=== PATIENT | male | born 1960 | race Caucasian/White ===

== ENCOUNTER → 2019-12-31 15:40 | Outpatient (BNVA) | payer OTHER, SELFPAY | PROVIDERS: PCP Family Medicine; Visit Provider Urology | DX: Z76.89 Persons encountering health services in other specified circumstances (principal) ==

== ENCOUNTER → 2020-02-17 14:48 | Outpatient (BNVA) | payer SELFPAY | PROVIDERS: PCP Family Medicine; Visit Provider Physician Assistant Medical ==

== ENCOUNTER 2020-05-24 14:31 | Outpatient (REF) | payer OTHER, SELFPAY ==
[2020-05-24 15:44] LABS: Alanine Aminotransferase 26 U/L (0-40); Albumin Level 4.6 g/dL (3.5-5.0); Alkaline Phosphatase 82 U/L (39-117); Anion Gap 15 (12-20); Aspartate Amino Transferase 16 U/L (5-37); Bilirubin Total 1.2 mg/dL (0.0-1.0); Blood Urea Nitrogen 19 mg/dL (9-16); Calcium 9.3 mg/dL (8.4-10.2); Carbon Dioxide 29 mmol/L (22-29); Chloride 97 mmol/L (96-108); Estimated Glomerular Filt Rate > 60; Glucose Random 93 mg/dL (60-115); Potassium 3.6 mmol/L (3.3-5.1); Sodium 137 mmol/L (135-145); Total Protein 7.3 g/dL (6.5-8.0)
[2020-05-24 15:52] LABS: Prostate Specific Antigen 0.35 ng/mL (<0.05-4.0)
[2020-05-24 15:55] LABS: Creatinine Urine 122.47 mg/dL; Microalbum/Creatinine Ratio Ur 15.5 ug/mg cr
== END 2020-05-24 14:32 | disposition home or self-care (01) ==
LOC: HO.LAB 14:31
PROVIDERS: Absent Provider Urology; PCP Family Medicine; Visit Provider Family Medicine
DX: Z00.00 Encounter for general adult medical examination without abnormal findings (principal); Z12.5 Encounter for screening for malignant neoplasm of prostate; C61 Malignant neoplasm of prostate; C79.51 Secondary malignant neoplasm of bone; N40.1 Benign prostatic hyperplasia with lower urinary tract symptoms; R35.1 Nocturia; I10 Essential (primary) hypertension
CPT/HCPCS: 36415; 80053; 82043; 84153

== ENCOUNTER 2020-06-04 09:58 | Outpatient (REF) | payer OTHER, SELFPAY ==
--- NOTE | ~2020-06-04 | XR_ITS ---
EXAMINATION: XR CHEST CLINICAL INFORMATION: Other specified mononeuropathies COMPARISON: Chest CT October 2019, chest x-ray July 2014 TECHNIQUE: 2 views of the chest were obtained. FINDINGS: Persistent elevation of the right hemidiaphragm. Linear opacity at the right base compatible with atelectasis and/or scarring with a similar appearance noted on prior examinations. Lungs otherwise clear. Cardiac silhouette, mediastinum and pulmonary vascularity are normal. XR/XR chest 2V IMPRESSION: Stable elevated right hemidiaphragm. Linear opacity at the right base compatible with persistent or recurrent discoid atelectasis versus scarring.
== END 2020-06-04 09:59 | disposition home or self-care (01) ==
LOC: HO.XRAY 09:58
PROVIDERS: PCP Family Medicine; Visit Provider Surgery
DX: G56.80 Other specified mononeuropathies of unspecified upper limb (principal)
CPT/HCPCS: 71046; 99212

== ENCOUNTER 2020-11-17 14:38 | Outpatient (REF) | payer OTHER, SELFPAY ==
[2020-11-17 15:31] LABS: Alanine Aminotransferase 20 U/L (0-40); Albumin Level 4.4 g/dL (3.5-5.0); Alkaline Phosphatase 87 U/L (39-117); Anion Gap 14 (12-20); Aspartate Amino Transferase 15 U/L (5-37); Bilirubin Total 1.8 mg/dL (0.0-1.0); Blood Urea Nitrogen 13 mg/dL (9-16); Calcium 9.6 mg/dL (8.4-10.2); Carbon Dioxide 29 mmol/L (22-29); Chloride 97 mmol/L (96-108); Cholesterol 122 mg/dL; Estimated Glomerular Filt Rate > 60; Glucose Fasting 88 mg/dL (60-99); HDL Cholesterol 35 mg/dL; LDL Cholesterol Calculated 77 mg/dl; Potassium 3.2 mmol/L (3.3-5.1); Sodium 137 mmol/L (135-145); Triglycerides 50 mg/dL
[2020-11-17 15:50] LABS: TSH reflex Free T4 0.82 uIU/mL (0.32-4.0)
[2020-11-17 15:57] LABS: Glucose Urine UA NEG (NEG); Leukocyte Esterase Urine NEG (NEG); Nitrite Urine NEG (NEG); Specific Gravity - Urine <= 1.005 (1.005-1.025); Urine Blood TRACE (NEG); Urine Ketones NEG (NEG); Urine Protein NEG (NEG-TRACE)
[2020-11-17 16:03] LABS: Appearance Urine CLEAR; Color Urine YELLOW
[2020-11-17 16:57] LABS: RBC Urine 0 /HPF (0); Squamous Epithelial Cell Urine TRACE /LPF; WBC Urine 0 /HPF (0-4)
== END 2020-11-17 14:39 | disposition home or self-care (01) ==
LOC: HO.LAB 14:38
PROVIDERS: PCP Family Medicine; Visit Provider Family Medicine
DX: Z00.00 Encounter for general adult medical examination without abnormal findings (principal); R31.29 Other microscopic hematuria
CPT/HCPCS: 36415; 80053; 80061; 81001; 81003; 84443

== ENCOUNTER 2020-12-30 14:23 | Outpatient (REF) | payer OTHER, SELFPAY ==
[2020-12-30 16:01] LABS: Prostate Specific Antigen 0.26 ng/mL (<0.05-4.0)
== END 2020-12-30 14:24 | disposition home or self-care (01) ==
LOC: HO.LAB 14:23
PROVIDERS: PCP Family Medicine; Visit Provider Urology
DX: Z12.5 Encounter for screening for malignant neoplasm of prostate (principal); C61 Malignant neoplasm of prostate; C79.51 Secondary malignant neoplasm of bone; N40.1 Benign prostatic hyperplasia with lower urinary tract symptoms; R35.1 Nocturia
CPT/HCPCS: 36415; 84153

== ENCOUNTER → 2021-01-05 15:39 | Outpatient (BNVA) | payer OTHER, SELFPAY | PROVIDERS: Visit Provider Urology | DX: N40.1 Benign prostatic hyperplasia with lower urinary tract symptoms (principal); R35.1 Nocturia | CPT/HCPCS: 51798 ==

== ENCOUNTER 2021-03-04 14:30 | Outpatient (REF) | payer OTHER, SELFPAY ==
[2021-03-04 15:22] LABS: Cholesterol 162 mg/dL; HDL Cholesterol 54 mg/dL; LDL Cholesterol Calculated 99 mg/dl; Triglycerides 47 mg/dL
== END 2021-03-04 14:31 | disposition home or self-care (01) ==
LOC: HO.LAB 14:30
PROVIDERS: PCP Family Medicine; Visit Provider Family Medicine
DX: E78.5 Hyperlipidemia, unspecified (principal)
CPT/HCPCS: 36415; 80061

== ENCOUNTER 2021-06-06 14:16 | Outpatient (REF) | payer OTHER, SELFPAY ==
[2021-06-06 15:17] LABS: Cholesterol 164 mg/dL; HDL Cholesterol 56 mg/dL; LDL Cholesterol Calculated 100 mg/dl; Triglycerides 43 mg/dL
== END 2021-06-06 14:17 | disposition home or self-care (01) ==
LOC: HO.LAB 14:16
PROVIDERS: PCP Family Medicine; Visit Provider Family Medicine
DX: E78.5 Hyperlipidemia, unspecified (principal)
CPT/HCPCS: 36415; 80061

== ENCOUNTER 2022-01-30 14:25 | Outpatient (REF) | payer OTHER, SELFPAY ==
[2022-01-30 15:34] LABS: Prostate Specific Antigen 0.96 ng/mL (<0.05-4.0)
== END 2022-01-30 14:26 | disposition home or self-care (01) ==
LOC: HO.LAB 14:25
PROVIDERS: PCP Family Medicine; Visit Provider Urology
DX: N40.1 Benign prostatic hyperplasia with lower urinary tract symptoms (principal); N13.8 Other obstructive and reflux uropathy; R35.1 Nocturia; Z12.5 Encounter for screening for malignant neoplasm of prostate
CPT/HCPCS: 36415; 84153

== ENCOUNTER 2022-03-13 09:23 | Outpatient (REF) | payer OTHER, SELFPAY ==
[2022-03-13 10:56] LABS: Appearance Urine Clear; Color Urine Yellow; Glucose Urine UA Negative (Negative); Leukocyte Esterase Urine Negative (Negative); Nitrite Urine Negative (Negative); Specific Gravity - Urine 1.015 (1.005-1.025); UMIC TRIGGER UA YES; Urine Blood Trace (Negative); Urine Ketones Negative (Negative); Urine Protein Negative (Neg-Trace)
[2022-03-13 11:01] LABS: Bacteria Urine None Seen (None Seen); Hyaline Casts Urine 0-2 /LPF (0-2); RBC Urine 0-2 /HPF (0-2); Squamous Epithelial Cell Urine 0-2 /HPF (0-2); WBC Urine 0-5 /HPF (0-5)
[2022-03-13 11:09] LABS: Alanine Aminotransferase 17 U/L (0-40); Albumin Level 4.2 g/dL (3.5-5.0); Alkaline Phosphatase 75 U/L (39-117); Anion Gap 13 (12-20); Aspartate Amino Transferase 15 U/L (5-37); Bilirubin Total 1.1 mg/dL (0.0-1.0); Blood Urea Nitrogen 20 mg/dL (9-16); Calcium 9.3 mg/dL (8.4-10.2); Carbon Dioxide 30 mmol/L (22-29); Chloride 99 mmol/L (96-108); Cholesterol 198 mg/dL; Estimated Glomerular Filt Rate > 60; Glucose Fasting 101 mg/dL (60-99); HDL Cholesterol 61 mg/dL; LDL Cholesterol Calculated 121 mg/dl; Potassium 3.9 mmol/L (3.3-5.1); Sodium 138 mmol/L (135-145); Total Protein 6.8 g/dL (6.5-8.0); Triglycerides 83 mg/dL
[2022-03-13 11:21] LABS: TSH reflex Free T4 1.07 uIU/mL (0.32-4.0)
[2022-03-13 11:24] LABS: Creatinine Urine 75.74 mg/dL; Microalbum/Creatinine Ratio Ur 10.5 ug/mg cr
== END 2022-03-13 09:24 | disposition home or self-care (01) ==
LOC: HO.LAB 09:23
PROVIDERS: Urology; PCP Family Medicine; Visit Provider Family Medicine
DX: Z00.00 Encounter for general adult medical examination without abnormal findings (principal); Z12.5 Encounter for screening for malignant neoplasm of prostate; R31.29 Other microscopic hematuria; I10 Essential (primary) hypertension
CPT/HCPCS: 36415; 80053; 80061; 81001; 82043; 84153; 84443

== ENCOUNTER 2022-06-04 09:35 | Emergency (ER) | payer OTHER, SELFPAY ==
[2022-06-04 09:43] VITALS: BP 151/89; PULSE 83; RESP 22; TEMP 37.1; O2SAT 93; BMI 42.3
[2022-06-04 09:52] VITALS: BP 139/80; PULSE 86; RESP 18; TEMP 36.8; O2SAT 93
--- NOTE | 2022-06-04 10:00 | PC.NURSE ---
pt AOx3, VSS. reports intermittent pain on left side and back mostly when pressing on rib area. Pt first thought is was muscular related. Red raised rash on left side and abd. Will continue to monitor
--- NOTE | 2022-06-04 10:08 | ED_ITS ---
HPI - General Adult General Chief complaint: General Medical Stated complaint: L flank pain rad to back Time Seen by Provider: 06/04/22 09:49 Source: patient Mode of arrival: ambulatory History of Present Illness HPI narrative: 62-year-old male who presents with tingling and pain along the left chest wall this started on / Sunday and then has progressively become more painful and he noted that yesterday he began having a rash . Related Data Home Medications Medication Instructions Recorded Confirmed doxycycline hyclate 20 mg tablet 20 mg PO BID 04/20/22 Previous Rx's Medication Instructions Recorded montelukast 10 mg tablet 10 mg PO DAILY 90 days #90 tabs 05/10/21 beclomethasone dipropionate 40 1 inh PO BID 3 months #3 ea 09/22/21 mcg/actuation HFA breath activated aerosol (Qvar RediHaler) albuterol sulfate 90 mcg/actuation 2 puff PO Q4H PRN shortness of 10/23/21 aerosol inhaler breath or wheezing 90 days #3 ea lisinopril 20 mg tablet 20 mg PO DAILY 90 days #90 tabs 03/16/22 chlorthalidone 50 mg tablet 50 mg PO QAM #90 tabs 05/23/22 valacyclovir 1 gram tablet 1,000 mg PO Q8H 7 days #21 tabs 06/04/22 Allergies Allergy/AdvReac Type Severity Reaction Status Date / Time Seasonal Allergies Allergy sneezing, Verified 06/04/22 09:47 runny nose Review of Systems Review of Systems: Pertinent positives and negatives as stated in HPI [facility] Past Medical History Source: nursing notes reviewed Medical History Hypertension Surgical History History of cholecystectomy History of wisdom tooth extraction Family History Family History Father No problems noted. Mother Cancer Brother Cancer of prostate Social History Social History Housing: House Alcohol intake: current Alcohol intake frequency: holidays/special occasions only Patient Tobacco Use Status: Never used Tobacco Smoked in Last 30 Days: No e-Cigarette/Vaping Use: Never Used Second Hand Smoke Exposure: No Use of substances other than those prescribed or required for medical reasons: No Advance Directives: No Advance Directives Information Provided: No service: No Current occupational status: employed Current occupational exposures/hazards: No Cognitive needs: No Hearing needs: No Vision needs: No Physical Exam ED Vital Signs: Vital Signs - 24 hr 06/04/22 09:43 06/04/22 09:52 Temperature 98.7 F 98.2 F Pulse Rate 83 86 Respiratory Rate 22 H 18 Blood Pressure 151/89 H 139/80 Pulse Oximetry 93 93 Oxygen Delivery Method Room Air Room Air BMI result Body Mass Index 42.3 VITAL SIGNS: Reviewed. GENERAL: Well developed, well nourished, in no acute distress. HEAD: Normocephalic/atraumatic EYES: PERRLA, EOMI OROPHARYNX: no oral lesions noted, posterior pharynx clear NECK: Supple, no adenopathy LUNGS: Normal breath sounds. No adventitious sounds or accessory muscle use. SpO2<93>; CHEST WALL: Patient has pain along the approximate T5 distribution with noted patches of vesicular rash. CARDIOVASCULAR: Regular rate and rhythm without noted murmurs ABDOMEN: Soft, non-tender, non-distended with bowel sounds. SKIN: Inspection of the skin reveals no rashes, vesicular rash along the approximate T5 dermatome level NEUROLOGIC: Alert and oriented x 4. Strength and sensation to light touch were grossly intact x 4. Medical Decision Making Medical Decision Making MDM Narrative: 62-year-old male with onset and course consistent with herpes zoster, shingles and received initial valacyclovir here in the emergency room and discharged on remaining course. Patient also received a lidocaine patch and Tylenol for headache. He is otherwise discharged home in stable condition Differential Diagnosis please see the discussion above Discharge Plan Discharge Clinical Impression: Herpes zoster Patient Disposition: Home, Self-Care Instructions: Shingles (ED) Additional Instructions: 1. Resume all home medications as prescribed. You can use [id number] lidocaine patch to areas that do not contain the rash. Otherwise, topical Benadryl cream will help with some itch, please avoid scratching as this could result in contamination underneath your fingernails and could potentially be transferred to someone else. 2. Please complete the entire course of shingles treatment. 3. Please follow-up with your primary care provider next 2-3 days. Return to the ER for any worsening symptoms. Prescriptions: New valacyclovir 1 gram tablet 1,000 mg PO Q8H 7 Days Qty: 21 0RF No Action montelukast 10 mg tablet 10 mg PO DAILY 90 Days Qty: 90 4RF Qvar RediHaler 40 mcg/actuation HFA aerosol breath activated 1 inh PO BID 90 Days Qty: 3 3RF albuterol sulfate 90 mcg/actuation HFA aerosol inhaler 2 puff PO Q4H PRN (Reason: shortness of breath or wheezing) 90 Days Qty: 3 3RF Rx Instructions: please provide # 3 inhaler for insurance purpose reasons. chlorthalidone 50 mg tablet 50 mg PO QAM Qty: 90 2RF lisinopril 20 mg tablet 20 mg PO DAILY 90 Days Qty: 90 2RF doxycycline hyclate 20 mg tablet 20 mg PO BID Referrals: Donnie Butterfield MD [Primary Care Provider] -
[2022-06-04] MEDS: Acetaminophen 325 MG TABLET 975 MG PO (10:21)
[2022-06-04] MEDS: valACYclovir HCL 1,000 MG TABLET 1000 MG PO (10:22)
[2022-06-04] MEDS: Lidocaine 4 % Patch ADH..PATCH 1 PATCH TRANSDERMA (10:23)
--- NOTE | 2022-06-04 10:25 | PC.NURSE ---
pt medicated per order. lidocaine patch placed left flank back area, avoiding any rash
== END 2022-06-04 10:38 | disposition home or self-care (01) ==
PROVIDERS: Emergency Provider Student in an Organized Health Care Education/Training Program; PCP Family Medicine
DX: B02.9 Zoster without complications (principal); R07.89 Other chest pain; M54.50 Low back pain, unspecified; Z79.899 Other long term (current) drug therapy
CPT/HCPCS: 99283; 99284

== ENCOUNTER 2022-07-11 15:43 | Outpatient (REF) | payer OTHER, SELFPAY ==
[2022-07-11 18:34] LABS: Anion Gap 20 (12-20); Blood Urea Nitrogen 17 mg/dL (9-16); Calcium 9.3 mg/dL (8.4-10.2); Carbon Dioxide 26 mmol/L (22-29); Chloride 93 mmol/L (96-108); Estimated Glomerular Filt Rate > 60; Glucose Fasting 69 mg/dL (60-99); Potassium 3.6 mmol/L (3.3-5.1); Sodium 135 mmol/L (135-145)
== END 2022-07-11 15:44 | disposition home or self-care (01) ==
LOC: HO.LAB 15:43
PROVIDERS: PCP Family Medicine; Visit Provider Family Medicine
DX: I10 Essential (primary) hypertension (principal)
CPT/HCPCS: 36415; 80048

== ENCOUNTER 2022-09-30 09:42 | Emergency (ER) | payer OTHER, SELFPAY ==
[2022-09-30 09:48] VITALS: BP 141/78; PULSE 96; RESP 18; TEMP 36.3; O2SAT 95; BMI 46.5
--- NOTE | 2022-09-30 10:10 | ED_ITS ---
HPI - General Adult General Chief complaint: Dyspnea Stated complaint: diff breathing chest congestion Time Seen by Provider: 09/30/22 09:56 Source: patient, family and RN notes reviewed Mode of arrival: ambulatory Limitations: no limitations History of Present Illness HPI narrative: This is a 62-year-old male, with a past medical history of hypertension, presenting to the emergency department, accompanied by his , for evaluation of productive cough with green sputum, congestion, and shortness of breath x 5 days. Patient reports that his symptoms started off with a sore throat and runny nose several days ago. Patient reports that he has developed a cough and now is coughing up green colored sputum. He reports pain in his chest which occurs with deep inspiration. Patient reports that the shortness of breath worsens with lying down. Denies any swelling in his lower extremities. No fevers, chills, sore throat, ear pain. Denies any other complaints or concerns at this time. MD complaint: Cough, SOB Onset (ago): day(s) Radiation: non-radiation Pain Consistency: intermittent Relieving factors: none Exacerbating factors: none Associated symptoms: cough Treatments prior to arrival: none Related Data Home Medications Medication Instructions Recorded Confirmed doxycycline hyclate 20 mg tablet 20 mg PO BID 04/20/22 07/14/22 Previous Rx's Medication Instructions Recorded beclomethasone dipropionate 40 1 inh PO BID 3 months #3 ea 09/22/21 mcg/actuation HFA breath activated aerosol (Qvar RediHaler) lisinopril 20 mg tablet 20 mg PO DAILY 90 days #90 tabs 03/16/22 chlorthalidone 50 mg tablet 50 mg PO QAM #90 tabs 05/23/22 albuterol sulfate 90 mcg/actuation 2 puff PO Q4H PRN shortness of 07/27/22 aerosol inhaler breath or wheezing 90 days #3 ea montelukast 10 mg tablet 10 mg PO DAILY 90 days #90 tabs 07/27/22 albuterol sulfate 2.5 mg/0.5 mL 2.5 mg (0.5 mL) inhalation Q20M 09/30/22 solution for nebulization #30 ea albuterol sulfate 90 mcg/actuation 2 puff inhalation Q6H PRN 09/30/22 aerosol inhaler shortness of breath or wheezing #6.7 grams azithromycin 250 mg tablet See Rx Instructions PO .COMPLEX #6 09/30/22 tabs nebulizers (Aeroneb Go Nebulizer) #1 ea 09/30/22 prednisone 50 mg tablet 50 mg PO DAILY 5 days #5 tabs 09/30/22 sodium chloride 0.9 % for 1 ml inhalation Q15M PRN shortness 10/02/22 nebulization of breath or wheezing #90 mL Allergies Allergy/AdvReac Type Severity Reaction Status Date / Time Seasonal Allergies Allergy sneezing, Verified 07/14/22 14:38 runny nose Review of Systems Review of Systems: Yes all other systems are reviewed and are negative Constitutional: Constitutional: Reports as per HPI [facility] Past Medical History Medical History Hypertension Surgical History History of cholecystectomy History of wisdom tooth extraction Family History Family History Father No problems noted. Mother Cancer Brother Cancer of prostate Social History Social History Housing: House Alcohol intake: current Alcohol intake frequency: a few times a week Patient Tobacco Use Status: Never used Tobacco Smoked in Last 30 Days: Yes e-Cigarette/Vaping Use: Never Used Second Hand Smoke Exposure: No Use of substances other than those prescribed or required for medical reasons: No Advance Directives: No Advance Directives Information Provided: No service: No Current occupational status: employed Current occupational exposures/hazards: No Cognitive needs: No Hearing needs: No Vision needs: No Physical Exam ED Vital Signs: Vital Signs - 24 hr 09/30/22 09:48 09/30/22 10:47 09/30/22 11:10 Temperature 97.3 F 98.4 F Pulse Rate 96 91 90 Respiratory Rate 18 16 24 H Blood Pressure 141/78 H 113/61 Pulse Oximetry 95 94 Oxygen Delivery Method Room Air Room Air 09/30/22 11:23 Temperature Pulse Rate 97 Respiratory Rate 21 H Blood Pressure 110/68 Pulse Oximetry 94 Oxygen Delivery Method Room Air BMI result Body Mass Index 46.5 Const General: cooperative, comfortable and no acute distress Orientation/consciousness: patient oriented x3 Limitations: no limitations HENMT Head: Yes normal to inspection, Yes normocephalic and Yes atraumatic Ears: hearing grossly normal bilaterally General nose exam: Normal external nose present Face and sinus: Yes normal facial exam Mouth: Normal oral and palatal mucosa present, oropharynx normal and moist mucous membranes Throat: Yes posterior oropharynx normal Eyes General: appearance normal, both eyes and all related structures Eyelids: Yes eyelids normal Conjunctivae: conjunctivae normal Sclerae: sclerae normal Pupils: Equal, round and reactive pupils present EOM: EOMs intact bilaterally Neck Neck: Yes normal visual inspection, Yes full ROM and Yes no lymphadenopathy Lymphatic: no lymphadenopathy noted Chest Chest palpation & inspection: normal inspection of the chest Resp Other: Diminished lung sounds in BL lung bases, right lower lung base with crackles with faint expiratory wheeze. Effort & Inspection: normal respiratory effort and able to speak in complete sentences Cardio Rate: regular rate Rhythm: regular rhythm Heart sounds: S1 normal heart sound present and S2 normal heart sound present GI Inspection: Yes normal to inspection Skin General skin exam: no rashes or lesions noted Trauma: no lacerations or abrasions Wounds: no wounds Neuro General: patient oriented x3 and moves all extremities Cranial nerves: Yes Equal, round and reactive pupils present Extrem Other: no pedal edema noted. no calf tenderness General: Yes normal to inspection Right upper extremity: normal to inspection Left upper extremity: normal to inspection Right lower extremity: normal to inspection Left lower extremity: normal to inspection Course Reevaluation(s) Reevaluation #1: Patient's symptoms improved with albuterol updraft x-ray without any evidence of consolidation however given clinical suspicions for PNE, will treat with azithromycin, prednisone, and albuterol. Work up reasurring not CHF exacerbation, troponin x1 negative, symptoms have been ongoing for 4+ days, no CP. Walking O2 saturation 95%. Advised to return with any new or worsening symptoms. Patient understands and agrees with plan. Medications Administered Discontinued Medications Generic Name Dose Route Start Last Admin Trade Name Freq PRN Reason Stop Dose Admin Albuterol Sulfate 5 mg 09/30/22 10:08 09/30/22 10:47 Albuterol Sulfate (0.083%) 2.5 Mg/3 Ml Vial.Neb INHALE 09/30/22 10:09 5 mg ONCE ONE Administration Medical Decision Making Medical Decision Making [facility] Narrative: 62-year-old male, with a past medical history of hypertension, presenting to the emergency department for evaluation of productive cough with green sputum, congestion, and shortness of breath. On arrival, pt mildly hypertensive at 141/78, all other VS WNL. Lungs with diminished sounds in BL bases, with crackles auscultated in the right low base. Given presentation, symptoms consistent with pneumonia vs. URI. Will obtain labs to r/o CHF given hx of HTN and SOB worsening with lying down. No pedal edema noted on exam. Plan: labs, ekg, cxr, albuterol updraft Differential Diagnosis Differential Diagnoses: The differential diagnosis associated with the presen tation includes pneumonia, URI, bronchitis, CHF, ACS - unlikely Admission/Observation Consideration of admission/observation: Escalation of care including admission/observation considered Patient would have been admitted to the hospital had his work up had any findings where hospital admission was appropriate and his clinical presentation warranted hospital admission. Lab Data MDM Lab Attestation statement: I reviewed the patient's lab results. BNP 20, troponin negative, mild leukocytosis at 11.1k. All other labs wnl. 09/30/22 10:34 09/30/22 10:34 Labs: Lab Results 09/30/22 09/30/22 09/30/22 Range/Units 10:34 10:34 10:34 WBC 11.1 H (4.8-10.8) X10*3/uL RBC 4.84 (4.60-5.80) X10*6/uL Hgb 14.7 (14.0-18.0) g/dl Hct 45.0 (42.0-52.0) % MCV 93.0 (80.0-98.0) fL MCH 30.4 (27.0-33.0) pg MCHC 32.7 (31.0-36.0) g/dl RDW 12.1 (11.0-16.0) % Plt Count 223 (160-400) X10*3/uL MPV 10.1 (9.4-12.4) fL Immature Gran % (Auto) 0.3 (0.0-0.4) % Neut % (Auto) 81.8 H (45-73) % Lymph % (Auto) 10.0 L (20-40) % [place] % (Auto) 5.3 (2-11) % Eos % (Auto) 2.2 (0-4) % Baso % (Auto) 0.4 (0-2) % Lymph # (Auto) 1.1 L (1.2-4.9) X10*3/uL [place] # (Auto) 0.6 (0.1-1.2) X10*3/uL Eos # (Auto) 0.2 (0.0-0.4) X10*3/uL Baso # (Auto) 0.0 (0.0-0.2) X10*3/uL Abs Immat Gran (auto) 0.03 (0.00-0.03) X10*3/uL Absolute Neuts (auto) 9.1 H (2.0-8.3) x10*3/uL Absolute Nucleated RBC 0.000 (0.0-0.012) X10*3/uL Nucleated RBC % (auto) 0.0 (0.0-0.2) /100WBC Sodium 142 (135-145) mmol/L Potassium 4.3 (3.3-5.1) mmol/L Chloride 103 (96-108) mmol/L Carbon Dioxide 27 (22-29) mmol/L Anion Gap 16 (12-20) BUN 22 H (9-16) mg/dL Creatinine 0.90 (0.5-1.4) mg/dL Estim Creat Clear Calc 140.2 Estimated GFR > 60 Random Glucose 113 (60-115) mg/dL Calcium 10.1 D (8.4-10.2) mg/dL Total Bilirubin 1.4 H (0.0-1.0) mg/dL Direct Bilirubin 0.4 (0.0-0.5) mg/dL AST 16 (5-37) U/L ALT 19 (0-40) U/L Alkaline Phosphatase 77 (39-117) U/L Troponin I High Sens < 2.7 (<3.5-35.0) ng/L B-Natriuretic Peptide (<100) pg/mL Total Protein 7.4 (6.5-8.0) g/dL Albumin 4.2 (3.5-5.0) g/dL COVID-19 (HUAN) (Negative) COVID-19 Clin Com 09/30/22 09/30/22 Range/Units 10:34 10:34 WBC (4.8-10.8) X10*3/uL RBC (4.60-5.80) X10*6/uL Hgb (14.0-18.0) g/dl Hct (42.0-52.0) % MCV (80.0-98.0) fL MCH (27.0-33.0) pg MCHC (31.0-36.0) g/dl RDW (11.0-16.0) % Plt Count (160-400) X10*3/uL MPV (9.4-12.4) fL Immature Gran % (Auto) (0.0-0.4) % Neut % (Auto) (45-73) % Lymph % (Auto) (20-40) % Marathon % (Auto) (2-11) % Eos % (Auto) (0-4) % Baso % (Auto) (0-2) % Lymph # (Auto) (1.2-4.9) X10*3/uL Marathon # (Auto) (0.1-1.2) X10*3/uL Eos # (Auto) (0.0-0.4) X10*3/uL Baso # (Auto) (0.0-0.2) X10*3/uL Abs Immat Gran (auto) (0.00-0.03) X10*3/uL Absolute Neuts (auto) (2.0-8.3) x10*3/uL Absolute Nucleated RBC (0.0-0.012) X10*3/uL Nucleated RBC % (auto) (0.0-0.2) /100WBC Sodium (135-145) mmol/L Potassium (3.3-5.1) mmol/L Chloride (96-108) mmol/L Carbon Dioxide (22-29) mmol/L Anion Gap (12-20) BUN (9-16) mg/dL Creatinine (0.5-1.4) mg/dL Estim Creat Clear Calc Estimated GFR Random Glucose (60-115) mg/dL Calcium (8.4-10.2) mg/dL Total Bilirubin (0.0-1.0) mg/dL Direct Bilirubin (0.0-0.5) mg/dL AST (5-37) U/L ALT (0-40) U/L Alkaline Phosphatase (39-117) U/L Troponin I High Sens (<3.5-35.0) ng/L B-Natriuretic Peptide 20 (<100) pg/mL Total Protein (6.5-8.0) g/dL Albumin (3.5-5.0) g/dL COVID-19 (HUAN) Negative (Negative) COVID-19 Clin Com See Note Independent Interpretation I performed an independent interpretation of an: EKG Interpretation: Normal sinus rhythm at a ventricular rate of 81BPM, OH interval 164, QTC 406. Radiology Impression Discussion of test interpretation with radiology: I have reviewed the radiologist's reading. Radiologist Impression: EXAMINATION: XR CHEST CLINICAL INFORMATION: Cough and chest pain COMPARISON: Chest: 06/04/2020 TECHNIQUE: 2 views of the chest were obtained. FINDINGS: There is elevated right hemidiaphragm with right lower lobe atelectasis. The right upper lung and the left lung is expanded and clear. The heart size enlarged. Pulmonary vascularity is normal. XR/XR chest 2V IMPRESSION: 1.? Elevated right hemidiaphragm with right lower lobe atelectasis. 2.? Mild cardiomegaly. Independent Historian Clinical information obtained from an independent historian. History obtained from or confirmed by: Spouse Chronic Conditions Patient?s care impacted by: Hypertension Discharge Plan Discharge Clinical Impression: Upper respiratory infection Patient Disposition: Still a Patient Instructions: Upper Respiratory Infection (ED) Additional Instructions: Please take prescribed medication as directed. Complete the entire course of antibiotics even if you are feeling better. Your x-ray did not show an obvious pneumonia however I am covering you to treat this. Your lab work and EKG were reassuring. Drink plenty of fluids and get plenty of rest. Please follow up with your primary care physician regarding this visit. Call today to make an appointment. Prescriptions: New azithromycin 250 mg tablet See Rx Instructions .ROUTE .COMPLEX Qty: 6 0RF Rx Instructions: For 250 mg dose pack: take 500 mg today (day 1), then 250 mg for 4 days (days 2-5) albuterol sulfate 90 mcg/actuation HFA aerosol inhaler 2 puff inhalation Q6H PRN (Reason: shortness of breath or wheezing) Qty: 6.7 0RF prednisone 50 mg tablet 50 mg PO DAILY 5 Days Qty: 5 0RF (DME) nebulizers [Aeroneb Go Nebulizer] Misc See Rx Instructions .Route Qty: 1 0RF Rx Instructions: As directed albuterol sulfate 2.5 mg/0.5 mL solution for nebulization 2.5 mg inhalation Q20M Qty: 30 0RF Rx Instructions: for up to 3 doses sodium chloride 0.9 % solution for nebulization 1 ml inhalation Q15M PRN (Reason: shortness of breath or wheezing) Qty: 90 0RF No Action Qvar RediHaler 40 mcg/actuation HFA aerosol breath activated 1 inh PO BID 90 Days Qty: 3 3RF chlorthalidone 50 mg tablet 50 mg PO QAM Qty: 90 2RF montelukast 10 mg tablet 10 mg PO DAILY 90 Days Qty: 90 4RF albuterol sulfate 90 mcg/actuation HFA aerosol inhaler 2 puff PO Q4H PRN (Reason: shortness of breath or wheezing) 90 Days Qty: 3 3RF Rx Instructions: please provide # 3 inhaler for insurance purpose reasons. lisinopril 20 mg tablet 20 mg PO DAILY 90 Days Qty: 90 2RF doxycycline hyclate 20 mg tablet 20 mg PO BID Interventions: ED Discharge Assessment Last Done: 09/30/22 13:18 Discharge Date/Time: 09/30/22 13:18
[2022-09-30 10:47] VITALS: PULSE 91; RESP 16; O2SAT 95
[2022-09-30 11:10] VITALS: BP 113/61; PULSE 90; RESP 24; TEMP 36.9; O2SAT 94
[2022-09-30 11:23] VITALS: BP 110/68; PULSE 97; RESP 21; O2SAT 94
--- NOTE | 2022-09-30 11:34 | PC.NURSE ---
aox4. calm, coop. breathing evenly, regularly, evenly. pt reports updraft has improved his sx. continues w/productive cough. no distress noted.
--- NOTE | 2022-09-30 12:54 | PC.NURSE ---
pt educated on use of spacer as req by PA, demonstrated appropriate understanding and return demonstration.
== END 2022-09-30 13:18 | disposition still patient (30) ==
PROVIDERS: Emergency Provider Emergency Medicine; PCP Family Medicine
DX: J06.9 Acute upper respiratory infection, unspecified (principal); R06.02 Shortness of breath; Z20.822 Contact with and (suspected) exposure to COVID-19; I10 Essential (primary) hypertension; E78.5 Hyperlipidemia, unspecified; J45.909 Unspecified asthma, uncomplicated; Z79.899 Other long term (current) drug therapy
CPT/HCPCS: 36415; 71046; 80048; 80076; 83880; 84484; 85025; 87635; 93005; 94640; 99284; 99285

== ENCOUNTER 2022-10-11 14:27 | Outpatient (AMB) | payer OTHER, SELFPAY ==
--- NOTE | 2022-10-11 14:34 | A.OFFPC_ITS ---
Vital Signs 10/11/22 14:35 Height 6 ft 2 in Weight 360 lb BMI 46.2 BP 124/62 Blood Pressure Location Lt brachial Position Sitting Pulse 68 Pulse Source Pulse Oximeter Pulse Oximetry (%) 98 Oxygen Delivery Method Room Air Intake Visit Reasons: f/u hypertension Intake Note: Patient is here to follow up on hypertension, and had a viral infection. Allergies Seasonal Allergies Allergy (Verified 10/11/22 14:38) sneezing, runny nose Tobacco use date assessed: 04/20/22 Dental Screening Dental Screen Date: 10/11/22 Did you have a dental visit in the last 12 months?: Yes Did you have a dental problem in the last 6 months where you did not have access to dental care?: No Was dental information given to patient?: No HPI f/u hypertension HPI Details 62 y/o male presents to f/u hypertension and elevated fasting blood sugars. Blood pressure today is 124/62. He is on lisinopril 20mg daily and chlorthalidone 50mg. A1c today 10/11/22 is 6.0%. Had been to the ED 09/30/22 for evaluation of congestion/shortness of breath. Work-up was negative but had given him z-frederick to cover for pneumonia. [facility] Medical History Hypertension Surgical History History of cholecystectomy History of wisdom tooth extraction Family History Father No problems noted. Mother Cancer Brother Cancer of prostate Social History Housing: House Alcohol intake: current Alcohol intake frequency: a few times a week Patient Tobacco Use Status: Never used Tobacco e-Cigarette/Vaping Use: Never Used Second Hand Smoke Exposure: No service: No Current occupational status: employed Current occupational exposures/hazards: No Cognitive needs: No Hearing needs: No Vision needs: No Questionnaire Thrive Questionnaire Date Thrive assessed: 04/20/22 WIL-7 AMB Questionnaire WIL-7 Date WIL - 7 assessed: 04/20/22 Source: Developed by Drs. Micha Mendoza, Tanja Velasquez, Bubba Rdz and colleagues, with an educational lynne from [employer]. Review of Systems Const Denies chills, Denies fatigue, Denies fever(s), Denies headache(s) and Denies weakness ENT Denies dizziness and Denies headache(s) Card Denies chest pain, Denies lightheadedness, Denies dyspnea and Denies other (Palpitations) Resp Denies cough, Denies dyspnea, Denies wheezing and Denies other ( shortness of breath) Musc Denies numbness and Denies tingling Neuro Denies dizziness, Denies headache(s), Denies numbness, Denies tingling, Denies paresthesias and Denies weakness Psych Denies anxiety and Denies depression Endo Denies fatigue Aller/Immun Denies wheezing Physical exam (Primary Care) Vital Signs: Last Vital Signs Pulse 68 10/11/22 14:35 BP 124/62 10/11/22 14:35 Pulse Ox 98 10/11/22 14:35 Oxygen Delivery Method Room Air 10/11/22 14:35 BMI result Body Mass Index 46.2 Tobacco/Smoking Status: Tobacco use Status Tobacco use date assessed 04/20/22 10/11/22 14:45 Patient Tobacco Use Status Never used Tobacco 10/11/22 14:45 e-Cigarette/Vaping Use Never Used 10/11/22 14:45 Thrive Assessment: Date of Thrive Assessment Date Thrive assessed 04/20/22 10/11/22 14:45 Const General: no acute distress and well developed Nutritional Appearance: well nourished Orientation/consciousness: patient oriented x3 HENMT Head: Yes normocephalic and Yes atraumatic Eyes General: appearance normal, both eyes and all related structures Pupils: Equal, round and reactive pupils present EOM: EOMs intact bilaterally Resp Effort & Inspection: normal respiratory effort Auscultation: clear to auscultation bilaterally Cardio Rate: regular rate Rhythm: regular rhythm Heart sounds: S1 normal heart sound present, S2 normal heart sound present, no gallops, no murmurs and no rubs Neuro General: patient oriented x3 and gait normal Cranial nerves: Yes Equal, round and reactive pupils present Psych Affect: normal affect Assessment and Plan Assessment & Plan (1) Essential hypertension: Comment: BP controlled Continue current med regimen Code(s): I10 - Essential (primary) hypertension (2) Pre-diabetes: Code(s): R73.03 - Prediabetes Plan: A1c is 6.0; good control continue diet low in sugars and starches and weightloss (3) Chalazion: Code(s): H00.19 - Chalazion unspecified eye, unspecified eyelid Plan: warm compresses and erythromycin ointment (4) Upper respiratory infection: Code(s): J06.9 - Acute upper respiratory infection, unspecified Plan: resolved (5) Asthma: Code(s): J45.909 - Unspecified asthma, uncomplicated Plan: stable Coding Level of Care Code Est Pt Level 4 (59702) Diagnoses Essential hypertension I10 Pre-diabetes R73.03 Chalazion H00.19 Upper respiratory infection J06.9 Asthma J45.909
[2022-10-11 14:35] VITALS: BP 124/62; PULSE 68; O2SAT 98; BMI 46.2
== END 2022-10-11 15:32 | disposition home or self-care (01) ==
PROVIDERS: Visit Provider Family Medicine
DX: I10 Essential (primary) hypertension (principal); J45.909 Unspecified asthma, uncomplicated; R73.03 Prediabetes; H00.19 Chalazion unspecified eye, unspecified eyelid; J06.9 Acute upper respiratory infection, unspecified
CPT/HCPCS: 99214

== ENCOUNTER 2023-01-10 14:01 | Outpatient (AMB) | payer OTHER, SELFPAY ==
--- NOTE | 2023-01-11 08:25 | AM.OFFVISNUR ---
Intake Intake Visit Reasons: flu shot Allergies Seasonal Allergies Allergy (Verified 10/11/22 14:38) sneezing, runny nose Office Procedures Flu Questionnaire Does the patient have a severe egg allergy?: No Does the patient have severe life threatening allergies?: No Does the patient have a fever or illness today?: No Has the patient ever had Guillain-[place] Syndrome?: No Has the patient ever had any past reaction to a flu shot?: No Comment: flu vaccine given left deltoid Immunizations flu vacc [id number] 6mos up(PF) 60 mcg(15 mcgx4)/0.5 mL IM syringe Performing Provider: Lev Vazquez CNP Performing Location: [facility] Medicine Administered by: Doris Stack RN on 01/10/23 14:26 Dose Route Admin Location Dispensed Lot Number Expiration Date NDC Stage Driver 0.5 mL IM Left Deltoid 0.5 mL [id number] 09/23/23 [id number] [employer] [facility] VIS Given Date VIS Provided VIS Publication Date 01/10/23 Single Vaccine 20 Eligibility Eligibility Date Funding Source Not [facility] Eligible 01/10/23 Private Coding Assessment & Plan Assessment & Plan Orders: Orders Influenza [id number] Immunization 01/10/23 Z23 - Encounter for immunization
== END 2023-01-10 14:12 | disposition home or self-care (01) ==
PROVIDERS: PCP Family Medicine; Visit Provider Family Medicine
DX: Z23 Encounter for immunization (principal)
CPT/HCPCS: 90471; 90686

== ENCOUNTER 2023-01-31 14:27 | Outpatient (REF) | payer OTHER, SELFPAY ==
[2023-01-31 16:06] LABS: Prostate Specific Antigen 1.19 ng/mL (<0.05-4.0)
== END 2023-01-31 14:28 | disposition home or self-care (01) ==
LOC: HO.LAB 14:27
PROVIDERS: PCP Family Medicine; Visit Provider Urology
DX: Z12.5 Encounter for screening for malignant neoplasm of prostate (principal)
CPT/HCPCS: 36415; 84153

== ENCOUNTER 2023-02-02 11:18 | Outpatient (AMB) | payer OTHER, SELFPAY ==
--- NOTE | 2023-02-02 11:34 | A.OFFVIS_ITS ---
Intake Intake Visit Reasons: 1Y PSA(set) Intake Note: Patient is Present for Follow Up PSA Urology Medication: None Antibiotic Allergies:none Blood Thinners: None Allergies Seasonal Allergies Allergy (Verified 02/21/23 14:42) sneezing, runny nose HPI HPI Comments History of Present Illness Details Mr Bravo is a very pleasant male. They are a patient of Dr. Hale. They are seen in the office today for the following urologic conditions. 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 Prior treatment includes fluid restriction, alpha lashay, 5-AR. Prostate Symptom Score 1/9 , Moderate (9-19), Bother 3 PSA - 01/13 0.26, 02/14 0.9, 02/15 1.2 Symptoms include 04/13 , incomplete emptying, weak stream, nocturia (>2), and are progressing / , incomplete emptying, weak stream, , and are improving. Results from testing include cystoscopy no abnormality seen 04/13 cytology - chronic inflammation Testing at next visit will include bladder scan. Treatment plan continue with current medications [facility] Medical History Hypertension Surgical History History of cholecystectomy History of wisdom tooth extraction Family History Father No problems noted. Mother Cancer Brother Cancer of prostate Social History Housing: House Alcohol intake: current Alcohol intake frequency: a few times a week Patient Tobacco Use Status: Never used Tobacco e-Cigarette/Vaping Use: Never Used Second Hand Smoke Exposure: No service: No Current occupational status: employed Current occupational exposures/hazards: No Cognitive needs: No Hearing needs: No Vision needs: No Review of Systems Const Denies chills and Denies fever(s) Card Reports no additional complaints and Denies syncope Resp Denies cough GI Denies abdominal pain and Denies heartburn Reports as per HPI and Denies change in libido Neuro Denies syncope Psych Denies change in libido Endo Denies change in libido Physical Exam Const General: cooperative, healthy appearing, comfortable and no acute distress Orientation/consciousness: patient oriented x3 HEENT Face and sinus: Yes normal facial exam Mouth: moist mucous membranes Neck Neck: Yes normal visual inspection, Yes full ROM and Yes trachea midline Chest Chest palpation & inspection: normal inspection of the chest Resp Effort & Inspection: normal respiratory effort, able to speak in complete sentences and no respiratory distress GI Inspection: Yes normal to inspection Back/Spine/Pelvis Cervical Spine: normal cervical lordosis Thoracic/Lumbar Spine: thoracic and lumbar spine normal to inspection Skin General skin exam: no rashes or lesions noted Neuro General: patient oriented x3, gait normal, tone normal and moves all extremities Extrem General: Yes normal to inspection and Yes capillary refill normal Assessment & Plan Assessment & Plan (1) BPH associated with nocturia: Code(s): N40.1 - Benign prostatic hyperplasia with lower urinary tract symptoms; R35.1 - Nocturia (2) Microscopic hematuria: Code(s): R31.29 - Other microscopic hematuria Plan Twelve month follow-up Orders: Orders Prostate Specific Antigen 364 Days N40.1 - Benign prostatic hyperplasia with lower urinary tract symptoms, R35.1 - Nocturia Prostate Specific Antigen 01/31/23 Z12.5 - Encounter for screening for malignant neoplasm of prostate Patient Instructions: Imaging studies, laboratory and physical exam results were discussed and reviewed in detail. No major barriers to patient understanding were identified. An opportunity to ask questions regarding the treatment plan was provided. All questions were answered. The patient expressed understanding and agreement with the above treatment plan. The patient is aware they should contact our office by phone for worsening of their current condition or the appearance of new urologic symptoms. Compliance is encouraged with any medications and followup testing that is ordered. It is a privilege to participate in the urologic care of your patient. If you have any questions or concerns regarding treatment for the above conditions, or other urologic issues, please do not hesitate to contact me. The office telephone contact is [phone]. This note is constructed using voice recognition software. While every effort has been made to ensure accuracy sewer hand errors may have been included. Yours sincerely, Dr Jeison Hazel MD, [facility] - Urology Providers of Expert, Compassionate Care for the Genitourinary System Coding Level of Care Code Est Pt Level 4 (46148) Diagnoses BPH associated with nocturia N40.1; R35.1 Microscopic hematuria R31.29
== END 2023-02-02 12:02 | disposition home or self-care (01) ==
PROVIDERS: Visit Provider Urology
DX: N40.1 Benign prostatic hyperplasia with lower urinary tract symptoms (principal); R35.1 Nocturia; R31.29 Other microscopic hematuria
CPT/HCPCS: 99213

== ENCOUNTER → 2023-02-02 11:18 | Outpatient (BNVA) | payer OTHER, SELFPAY | PROVIDERS: Visit Provider Urology ==

== ENCOUNTER 2023-02-21 14:18 | Outpatient (AMB) | payer OTHER, SELFPAY ==
[2023-02-21 14:39] VITALS: BP 140/85; PULSE 74; RESP 20; O2SAT 96; BMI 47.8
--- NOTE | 2023-02-21 14:39 | MHC.PC.OV ---
Vital Signs 02/21/23 14:39 Height 6 ft 2 in Weight 372 lb BMI 47.8 BP 140/85 H Blood Pressure Location Lt brachial Position Sitting Respiration 20 Pulse 74 Pulse Source Pulse Oximeter Pulse Oximetry (%) 96 Oxygen Delivery Method Room Air Intake Visit Reasons: f/u hypertension and pre-diabetes Intake Note: Patient is here to follow up on hypertension and prediabetes. He did bring in a letter stating that Pulmicort flexhaler 40 mcg Patient c/o back pain for a couple of weeks. Allergies Seasonal Allergies Allergy (Verified 02/21/23 14:42) sneezing, runny nose Tobacco use date assessed: 04/20/22 HPI f/u hypertension and pre-diabetes HPI Details 62 y/o male presents to f/u hypertension and pre-diabetes. Blood pressure today 140/85. He is on lisinopril 20mg and chlorthalidone 50mg. Last A1c 10/11/22 6.0%. Pt has complaints of back pain. He reports he has been taking ibuprofen for relief. [facility] Medical History Hypertension Surgical History History of cholecystectomy History of wisdom tooth extraction Family History Father No problems noted. Mother Cancer Brother Cancer of prostate Social History Housing: House Alcohol intake: current Alcohol intake frequency: a few times a week Patient Tobacco Use Status: Never used Tobacco e-Cigarette/Vaping Use: Never Used Second Hand Smoke Exposure: No service: No Current occupational status: employed Current occupational exposures/hazards: No Cognitive needs: No Hearing needs: No Vision needs: No Questionnaire Thrive Questionnaire Date Thrive assessed: 04/20/22 WIL-7 AMB Questionnaire WIL-7 Date WIL - 7 assessed: 04/20/22 Source: Developed by Drs. Micha Mendoza, Tanja Velasquez, Bubba Rdz and colleagues, with an educational lynne from [employer]. ACT Questionnaire In the past 4 weeks, how much of the time did your asthma keep you from getting as much done at work, school or at home?: None of the time During the past 4 weeks, how often have you had shortness of breath?: Not at all During the past 4 weeks, how often did your asthma symptoms wake you up at night or earlier than usual in the morning?: Not at all During the past 4 weeks, how often have you had to use your rescue inhaler or nebulizer medication?: Not at all How would you rate your asthma control during the past 4 weeks?: Completely controlled ACT Interpretation: Negative Score: 25 Review of Systems Const Denies chills, Denies fatigue, Denies fever(s), Denies headache(s) and Denies weakness ENT Denies dizziness and Denies headache(s) Card Denies dyspnea Resp Denies cough, Denies dyspnea, Denies wheezing and Denies other (shortness of breath) Musc Reports back pain, Denies numbness and Denies tingling Neuro Denies dizziness, Denies headache(s), Denies numbness, Denies tingling and Denies weakness Psych Denies anxiety and Denies depression Endo Denies fatigue Aller/Immun Denies wheezing Physical exam (Primary Care) Vital Signs: Last Vital Signs Pulse 74 02/21/23 14:39 Resp 20 02/21/23 14:39 BP 140/85 H 02/21/23 14:39 Pulse Ox 96 02/21/23 14:39 Oxygen Delivery Method Room Air 02/21/23 14:39 BMI result Body Mass Index 47.8 Tobacco/Smoking Status: Tobacco use Status Tobacco use date assessed 04/20/22 02/21/23 14:48 Patient Tobacco Use Status Never used Tobacco 02/21/23 14:48 e-Cigarette/Vaping Use Never Used 02/21/23 14:48 Thrive Assessment: Date of Thrive Assessment Date Thrive assessed 04/20/22 02/21/23 14:48 Const General: well developed; No acute distress Nutritional Appearance: well nourished Orientation/consciousness: patient oriented x3 HENMT Head: Yes normocephalic and Yes atraumatic Eyes General: appearance normal, both eyes and all related structures Pupils: Equal, round and reactive pupils present EOM: EOMs intact bilaterally Resp Effort & Inspection: normal respiratory effort Neuro General: patient oriented x3 and gait normal Cranial nerves: Yes Equal, round and reactive pupils present Psych Affect: normal affect Office Procedures Pulmonary Testing Pulmonary Testing Details: 1. 300 2. 270 3. 330 Patients best is 330. All charges added?: Additional procedure code (CPT) needed Telehealth Telehealth Minutes spent on Phone/Video with Pt.: 10 Assessment and Plan Assessment & Plan (1) Essential hypertension: Code(s): I10 - Essential (primary) hypertension Plan: Blood?pressure?is?elevated?today?but?patient?strained?his?back?and?has?significant?discomfort. Will?ask?him?to?return?in?a?month?to?follow-up?hypertension?and?ensure?that?he?is?well?controlled. No?medication?changes?today. (2) Pre-diabetes: Code(s): R73.03 - Prediabetes Plan: A1c?now?6.0%; pre?diabetes?range He?continues?to?gain?weight Encouraged?diet?low?in?sugars?and?starches.??Encouraged?exercise?and?weight?loss. (3) Asthma: Code(s): J45.909 - Unspecified asthma, uncomplicated Plan: ACT?questionnaire?scoring?at?25; suggests?good?control. Peak?flow?well?below?lower?threshold?of?normal?for?his?size?and?age However,?patient?notes?that?he?is?having?pain?with?deep?inspiration?due?to?his?back?pain?and?not?due?to?asthma?symptoms. Patient?was?given?a?peak?flow?meter?and?he?will?keep?a?log?of?his?peak?flow?measurements. We?can?discuss?this?at?his?next?visit?in?a?month. (4) Back pain: Code(s): M54.9 - Dorsalgia, unspecified Plan: Significant?back?pain?from?muscular?strain. He?was?seen?at?urgent?care?and?given?muscle?relaxants Encouraged?good?posture?and?body?mechanics. Take?medications?as?prescribed Orders: Orders Pulmonary Test/Procedure Today R06.00 - Dyspnea, unspecified Pulmonary Test/Procedure Today J45.909 - Unspecified asthma, uncomplicated Coding Level of Care Code Est Pt Level 4 (14893) Diagnoses Essential hypertension I10 Pre-diabetes R73.03 Asthma J45.909 Back pain M54.9
== END 2023-02-21 15:42 | disposition home or self-care (01) ==
PROVIDERS: PCP Family Medicine; Visit Provider Family Medicine
DX: I10 Essential (primary) hypertension (principal); R73.03 Prediabetes; J45.909 Unspecified asthma, uncomplicated; M54.9 Dorsalgia, unspecified
CPT/HCPCS: 99214

== ENCOUNTER 2023-04-19 09:24 | Outpatient (AMB) | payer OTHER, SELFPAY ==
--- NOTE | 2023-04-19 08:19 | MHC.PC.OV ---
Vital Signs 04/19/23 09:33 Height 6 ft 2 in Weight 372 lb BMI 47.8 BP 145/71 H Blood Pressure Location Lt brachial Position Sitting Pulse 65 Pulse Source Pulse Oximeter Pulse Oximetry (%) 92 Oxygen Delivery Method Room Air Intake Visit Reasons: f/u hypertension and asthma Intake Note: Patient is here to follow up on asthma. Allergies Seasonal Allergies Allergy (Verified 04/19/23 09:34) sneezing, runny nose Medication List - Last Reconciled 04/19/23 by Donnie Butterfield MD albuterol sulfate 90 mcg/actuation 2 puffs inhalation Q6H PRN albuterol sulfate 2.5 mg (0.5 mL) inhalation Q20M albuterol sulfate 90 mcg/actuation 2 puffs PO Q4H PRN 90 days beclomethasone dipropionate 40 mcg/actuation (Qvar RediHaler) 1 inh PO BID 3 months budesonide 90 mcg/actuation (Pulmicort Flexhaler) 1 inh inhalation Q12H chlorthalidone 50 mg PO QAM doxycycline hyclate 20 mg PO BID erythromycin 0.5 inches ophthalmic (eye) TID 7 days lisinopril 20 mg PO DAILY 90 days montelukast 10 mg PO DAILY 90 days nebulizers (Aeroneb Go Nebulizer) As directed sodium chloride 0.9% 1 mL inhalation Q15M PRN Tobacco use date assessed: 04/19/23 Dental Screening Dental Screen Date: 04/19/23 Did you have a dental visit in the last 12 months?: Yes Did you have a dental problem in the last 6 months where you did not have access to dental care?: No Was dental information given to patient?: Patient has dentist HPI f/u hypertension and asthma HPI Details Patient?presents?to?follow-up?hypertension?and?asthma Blood?pressure?remains?elevated. He?is?taking?lisinopril?and?chlorthalidone Act?questionnaire?is?within?normal?range;? He?is?taking?albuterol?and?QVAR PFSH Medical History Hypertension Surgical History History of cholecystectomy History of wisdom tooth extraction Family History Father No problems noted. Mother Cancer Brother Cancer of prostate Social History Housing: House Alcohol intake: current Alcohol intake frequency: a few times a week Patient Tobacco Use Status: Never used Tobacco e-Cigarette/Vaping Use: Never Used Second Hand Smoke Exposure: No service: No Current occupational status: employed Current occupational exposures/hazards: No Cognitive needs: No Hearing needs: No Vision needs: No Questionnaire PHQ-9 Over the last 2 weeks, how often have you been bothered by any of the following problems? 1. Little interest or pleasure in doing things: not at all 2. Feeling down, depressed, or hopeless: not at all 3. Trouble falling or staying asleep, or sleeping too much: not at all 4. Feeling tired or having little energy: not at all 5. Poor appetite or overeating: not at all 6. Feeling bad about yourself - or that you are a failure or have let yourself or your family down: not at all 7. Trouble concentrating on things, such as reading the newspaper or watching television: not at all 8. Moving or speaking so slowly that other people could have noticed. Or the opposite - being so fidgety or restless that you have been moving around a lot more than usual: not at all 9. Thoughts that you would be better off or of hurting yourself in some way: not at all Total score: 0 Depression Screening Interpretation: Negative Depression Screening Done: Yes 56260 - PHQ-9 Billing: Yes Source: Developed by Drs. Micha Mendoza, Tanja Velasquez, Bubba Rdz and colleagues, with an educational lynne from [employer]. Thrive Questionnaire Date Thrive assessed: 04/19/23 I am a: Patient What is your living situation today?: I have a steady place to live Within the past 12 months, did the food you bought not last and you didn't have the money to get more?: Never true Within the past 12 months, did you worry whether your food would run out before you got money to buy more?: Never true Do you have trouble paying for medicines?: No Do you have trouble getting transportation to medical appointments?: No Do you have trouble paying your heating and electricity bill?: No Do you have trouble taking care of your child, family member or friend?: No Do you have trouble with day-to-day activities such as bathing, preparing meals, shopping, managing finances, etc.?: No Are you currently unemployed and looking for a job?: No Are you interested in more education?: No THRIVE Score: 0 AUDIT C Alcohol Use Questionnaire (AUDIT-C) 1. How often do you have a drink containing alcohol?: 2-3 times a week 2. How many drinks containing alcohol do you have on a typical day when you are drinking?: 1 or 2 3. How often do you have six or more drinks on one occasion?: Never Total Score: 3 WIL-7 AMB Questionnaire WIL-7 Date WIL - 7 assessed: 04/19/23 Feeling nervous, anxious, or on edge: 0 = Not at all Not being able to stop or control worryin = Not at all Worrying too much about different things: 0 = Not at all Trouble relaxin = Not at all Being so restless that it is hard to sit still: 0 = Not at all Becoming easily annoyed or irritable: 0 = Not at all Feeling afraid as if something awful might happen: 0 = Not at all Total WIL-7 score (0-4 normal; 5-9 mild; 10-14 moderate; 15-21 severe): 0 Source: Developed by Drs. Micha Mendoza, Tanja Velasquez, Bubba Rdz and colleagues, with an educational lynne from [employer]. WIL-7 Assessment Billing WIL-7 Assessment Tool: WIL-7 Assessment 55647 ACT Questionnaire In the past 4 weeks, how much of the time did your asthma keep you from getting as much done at work, school or at home?: None of the time During the past 4 weeks, how often have you had shortness of breath?: Not at all During the past 4 weeks, how often did your asthma symptoms wake you up at night or earlier than usual in the morning?: Not at all During the past 4 weeks, how often have you had to use your rescue inhaler or nebulizer medication?: Once a week or less (3 times in the last 4 weeks) How would you rate your asthma control during the past 4 weeks?: Completely controlled Score: 24 Review of Systems Const Denies chills, Denies fatigue, Denies fever(s), Denies headache(s) and Denies weakness ENT Denies dizziness and Denies headache(s) Card Denies chest pain, Denies lightheadedness, Denies dyspnea and Denies other (Palpitations) Resp Denies cough, Denies dyspnea, Denies wheezing and Denies other ( shortness of breath) Musc Denies numbness and Denies tingling Neuro Denies dizziness, Denies headache(s), Denies numbness, Denies tingling, Denies paresthesias and Denies weakness Psych Denies anxiety and Denies depression Endo Denies fatigue Aller/Immun Denies wheezing Physical exam (Primary Care) Vital Signs: Last Vital Signs Pulse 65 04/19/23 09:33 BP 145/71 H 04/19/23 09:33 Pulse Ox 92 04/19/23 09:33 Oxygen Delivery Method Room Air 04/19/23 09:33 BMI result Body Mass Index 47.8 Tobacco/Smoking Status: Tobacco use Status Tobacco use date assessed 04/19/23 04/19/23 09:42 Patient Tobacco Use Status Never used Tobacco 04/19/23 08:20 e-Cigarette/Vaping Use Never Used 04/19/23 08:20 PHQ-9: PHQ-9 Score PHQ-9: Total score 0 04/19/23 09:44 Depression Screening Interpretation: Negative Thrive Assessment: Date of Thrive Assessment Date Thrive assessed 04/19/23 04/19/23 09:42 Const General: no acute distress and well developed Nutritional Appearance: well nourished Orientation/consciousness: patient [facility]: Yes normocephalic and Yes atraumatic Eyes General: appearance normal, both eyes and all related structures Pupils: Equal, round and reactive pupils present EOM: EOMs intact bilaterally Resp Effort & Inspection: normal respiratory effort Auscultation: clear to auscultation bilaterally Cardio Rate: regular rate Rhythm: regular rhythm Heart sounds: S1 normal heart sound present, S2 normal heart sound present, no gallops, no murmurs and no rubs Neuro General: patient oriented x3 and gait normal Cranial nerves: Yes Equal, round and reactive pupils present Psych Affect: normal affect Assessment and Plan Assessment & Plan (1) Essential hypertension: Code(s): I10 - Essential (primary) hypertension Plan: Blood?pressure?is?again?above?140/90 Continue?lisinopril?and?chlorthalidone.??Will?add?some?amlodipine Call?for?any?problems Encouraged?weight?loss?and?exercise (2) Asthma: Code(s): J45.909 - Unspecified asthma, uncomplicated Plan: Act?questionnaires?shows?good?control Patient's?lungs?are?clear Continue?current?medication?regimen Orders: Orders Complete Blood Count Auto Diff Today Z00.00 - Encounter for general adult medical examination without abnormal findings Microalbumin, Random (w Creat) Today I10 - Essential (primary) hypertension Prostate Specific Antigen Scr Today Z12.5 - Encounter for screening for malignant neoplasm of prostate TSH reflex Free T4 Today Z00.00 - Encounter for general adult medical examination without abnormal findings Comprehensive [place]. Panel Fast Today Z00.00 - Encounter for general adult medical examination without abnormal findings Lipid Panel Today Z00.00 - Encounter for general adult medical examination without abnormal findings UA and rflx microscopic Today Z00.00 - Encounter for general adult medical examination without abnormal findings Medications: New amlodipine 5 mg PO DAILY 30 tabs 2RF 30 days Coding Level of Care Code Est Pt Level 3 (01384) Diagnoses Essential hypertension I10 Asthma J45.909 Additional Codes WIL-7 Assessment Billing - WIL-7 Assessment Tool: WIL-7 Assessment 21817 ([id number])
[2023-04-19 09:33] VITALS: BP 145/71; PULSE 65; O2SAT 92; BMI 47.8
== END 2023-04-19 09:58 | disposition home or self-care (01) ==
PROVIDERS: PCP Family Medicine; Visit Provider Family Medicine
DX: I10 Essential (primary) hypertension (principal); J45.909 Unspecified asthma, uncomplicated
CPT/HCPCS: 99213

== ENCOUNTER 2023-08-02 11:51 | Outpatient (AMB) | payer OTHER, SELFPAY ==
[2023-08-02 11:53] VITALS: BP 130/74; PULSE 74; O2SAT 96; BMI 48.0
--- NOTE | 2023-08-02 11:53 | A.OFFPC_ITS ---
Vital Signs 08/02/23 11:53 Height 6 ft 2 in Weight 374 lb BMI 48.0 BP 130/74 Blood Pressure Location Lt brachial Position Sitting Pulse 74 Pulse Source Pulse Oximeter Pulse Oximetry (%) 96 Oxygen Delivery Method Room Air Intake Visit Reasons: CPE Intake Note: Patient is here for his physical today. Patient called and stated that he tried calling to see if labs were put in, and was told no. That is why he did not get them done. Patient needs refill of Flovent inhaler. Allergies Seasonal Allergies Allergy (Verified 08/02/23 11:58) sneezing, runny nose Tobacco use date assessed: 08/02/23 Dental Screening Dental Screen Date: 04/19/23 [facility] Medical History Hypertension Surgical History History of cholecystectomy History of wisdom tooth extraction Family History (Updated 08/02/23 @ 12:01 by Radha Lyons CMA) Father No problems noted. Mother Cancer Brother Cancer of prostate Social History Housing: House Alcohol intake: current Alcohol intake frequency: a few times a week Patient Tobacco Use Status: Never used Tobacco e-Cigarette/Vaping Use: Never Used Second Hand Smoke Exposure: No service: No Current occupational status: employed and retired Current occupational exposures/hazards: No Cognitive needs: No Hearing needs: No Vision needs: No Questionnaire Thrive Questionnaire Date Thrive assessed: 04/19/23 WIL-7 AMB Questionnaire WIL-7 Date WIL - 7 assessed: 04/19/23 Source: Developed by Drs. Micha Mendoza, Tanja Velasquez, Bubba Rdz and colleagues, with an educational lynne from [employer]. Physical exam (Primary Care) Vital Signs: Last Vital Signs Pulse 74 08/02/23 11:53 BP 130/74 08/02/23 11:53 Pulse Ox 96 08/02/23 11:53 Oxygen Delivery Method Room Air 08/02/23 11:53 BMI result Body Mass Index 48.0 Tobacco/Smoking Status: Tobacco use Status Tobacco use date assessed 08/02/23 08/02/23 12:07 Patient Tobacco Use Status Never used Tobacco 08/02/23 11:56 e-Cigarette/Vaping Use Never Used 08/02/23 11:56 Thrive Assessment: Date of Thrive Assessment Date Thrive assessed 04/19/23 08/02/23 11:56 Assessment and Plan Assessment & Plan (1) Annual visit for general adult medical examination without abnormal findings: Code(s): Z00.00 - Encounter for general adult medical examination without abnormal findings Plan: 63-year-old?male?presents?for?complete?physical?exam Encouraged?healthy?diet?with?active?lifestyle?and?plenty?of?exercise (2) Morbid obesity: Code(s): E66.01 - Morbid (severe) obesity due to excess calories Plan: Morbid?obesity?with?BMI?greater?than?45 Encouraged?diet?and?exercise He?also?has?some?elevated?fasting?blood?sugars/pre?diabetes. Trial?Ozempic.??Risks/benefits?were?discussed (3) BMI 45.0-49.9, adult: Code(s): Z68.42 - Body mass index [BMI] 45.0-49.9, adult Plan: As?above (4) Pre-diabetes: Code(s): R73.03 - Prediabetes Plan: As?above (5) Essential hypertension: Code(s): I10 - Essential (primary) hypertension Plan: Blood?pressure?now?controlled?and?at?goal?of?less?than?140/90 (6) Weight gain: Code(s): R63.5 - Abnormal weight gain Plan: Ongoing?weight?gain. As?above,?trial?Ozempic (7) Screening for prostate cancer: Code(s): Z12.5 - Encounter for screening for malignant neoplasm of prostate Plan: Check?PSA (8) Asthma: Code(s): J45.909 - Unspecified asthma, uncomplicated Plan: Stable Continue?current?medications Also?advised?a?daytime?antihistamine,?OTC (9) Screening for colon cancer: Code(s): Z12.11 - Encounter for screening for malignant neoplasm of colon Plan: Has?appointment?with??[facility] Medications: New semaglutide (Ozempic) for 4 weeks 0.25 mg (0.368 mL) subcut QWEEK 28 days 1.472 mL 3RF E66.01 - Morbid (severe) obesity due to excess calories, R73.01 - Impaired fasting glucose, Z68.42 - Body mass index [BMI] 45.0-49.9, adult Refilled beclomethasone dipropionate 40 mcg/actuation (Qvar RediHaler) 1 inh PO BID 3 months 3 ea 3RF Coding Level of Care Code Est Pt Level 3 (55867) Est Pt Prev Care 40-64y(81829) Diagnoses Annual visit for general adult medical examination without abnormal findings Z00.00 Morbid obesity E66.01 BMI 45.0-49.9, adult Z68.42 Pre-diabetes R73.03 Essential hypertension I10 Weight gain R63.5 Screening for prostate cancer Z12.5 Asthma J45.909 Screening for colon cancer Z12.11
== END 2023-08-02 14:03 | disposition home or self-care (01) ==
PROVIDERS: PCP Family Medicine; Visit Provider Family Medicine
DX: Z00.00 Encounter for general adult medical examination without abnormal findings (principal); E66.01 Morbid (severe) obesity due to excess calories; Z68.42 Body mass index [BMI] 45.0-49.9, adult; R73.03 Prediabetes; I10 Essential (primary) hypertension; R63.5 Abnormal weight gain; Z12.5 Encounter for screening for malignant neoplasm of prostate; J45.909 Unspecified asthma, uncomplicated; Z12.11 Encounter for screening for malignant neoplasm of colon
CPT/HCPCS: 99213; 99396

== ENCOUNTER 2023-08-06 10:18 | Outpatient (REF) | payer OTHER, SELFPAY ==
[2023-08-06 10:32] LABS: MANUAL DIFF FLAG NO
[2023-08-06 10:45] LABS: Basophils Absolute Auto 0.1 X10*3/uL (0.0-0.2); Eosinophils Absolute Auto 0.5 X10*3/uL (0.0-0.4); Eosinophils Percent Auto 7.8 % (0-4); Hematocrit 45.8 % (42.0-52.0); Hemoglobin 15.1 g/dl (14.0-18.0); Imm Gran Abs Auto 0.01 X10*3/uL (0.00-0.03); Imm Gran Pct Auto 0.2 % (0.0-0.4); Lymphocytes Absolute Auto 1.4 X10*3/uL (1.2-4.9); Lymphocytes Percent Auto 22.8 % (20-40); Mean Corpuscular Hemoglobin 30.1 pg (27.0-33.0); Mean Corpuscular Volume 91.2 fL (80.0-98.0); Monocytes Absolute Auto 0.4 X10*3/uL (0.1-1.2); Monocytes Percent Auto 5.7 % (2-11); Neutrophils Absolute Auto 3.9 x10*3/uL (2.0-8.3); Neutrophils Percent Auto 62.5 % (45-73); Platelet Count 232 X10*3/uL (160-400); Red Blood Count 5.02 X10*6/uL (4.60-5.80); Red Cell Distribution Width 12.7 % (11.0-16.0); White Blood Count 6.2 X10*3/uL (4.8-10.8)
[2023-08-06 11:26] LABS: Appearance Urine Clear; Color Urine Yellow; Glucose Urine UA Negative (Negative); Leukocyte Esterase Urine Negative (Negative); Nitrite Urine Negative (Negative); Specific Gravity - Urine 1.015 (1.005-1.025); Urine Blood Negative (Negative); Urine Ketones Negative (Negative); Urine Protein Negative (Neg-Trace)
[2023-08-06 11:33] LABS: Creatinine Urine 76.34 mg/dL; Microalbum/Creatinine Ratio Ur 10.4 ug/mg cr (<30)
[2023-08-06 11:39] LABS: Alanine Aminotransferase 17 U/L (0-40); Albumin Level 4.3 g/dL (3.5-5.0); Alkaline Phosphatase 71 U/L (39-117); Anion Gap 13 (12-20); Aspartate Amino Transferase 12 U/L (5-37); Bilirubin Total 0.7 mg/dL (0.0-1.0); Blood Urea Nitrogen 19 mg/dL (9-16); Calcium 9.5 mg/dL (8.4-10.2); Carbon Dioxide 33 mmol/L (22-29); Chloride 97 mmol/L (96-108); Cholesterol 196 mg/dL (<200); Estimated Glomerular Filt Rate > 60; Glucose Fasting 117 mg/dL (60-99); HDL Cholesterol 51 mg/dL (>40); LDL Cholesterol Calculated 134 mg/dL (<100); Potassium 3.7 mmol/L (3.3-5.1); Sodium 139 mmol/L (135-145); Total Protein 7.4 g/dL (6.5-8.0); Triglycerides 57 mg/dL (<150)
[2023-08-06 11:47] LABS: Prostate Specific Antigen Scr 0.93 ng/mL (<0.05-4.0)
[2023-08-06 11:57] LABS: TSH reflex Free T4 0.98 uIU/mL (0.32-4.0)
== END 2023-08-06 10:19 | disposition home or self-care (01) ==
LOC: HO.LAB 10:18
PROVIDERS: PCP Family Medicine; Visit Provider Family Medicine
DX: Z00.00 Encounter for general adult medical examination without abnormal findings (principal); Z12.5 Encounter for screening for malignant neoplasm of prostate; I10 Essential (primary) hypertension
CPT/HCPCS: 36415; 80053; 80061; 81003; 82043; 82570; 84153; 84443; 85025

== ENCOUNTER → 2023-08-27 10:43 | Outpatient (AMB) | payer OTHER, SELFPAY ==
--- NOTE | 2023-08-27 10:37 | A.OFFPC_ITS ---
Intake Visit Reasons: F/U CPE + labs Intake Note: Patient is scheduled to review labs today would like refill of Amlodipine, and needs substitue for Qvar, and Ozempic. Allergies Seasonal Allergies Allergy (Verified 08/27/23 10:38) sneezing, runny nose Medication List - Last Reconciled 08/27/23 by Donnie Butterfield MD albuterol sulfate 2.5 mg (0.5 mL) inhalation Q20M albuterol sulfate 90 mcg/actuation 2 puffs PO Q4H PRN 90 days amlodipine 5 mg PO DAILY 30 days beclomethasone dipropionate 40 mcg/actuation (Qvar RediHaler) 1 inh PO BID 3 months chlorthalidone 50 mg PO QAM doxycycline hyclate 20 mg PO BID lisinopril 20 mg PO DAILY 90 days montelukast 10 mg PO DAILY 90 days nebulizers (Aeroneb Go Nebulizer) As directed semaglutide (Ozempic) 0.25 mg (0.368 mL) subcut QWEEK 28 days sodium chloride 0.9% 1 mL inhalation Q15M PRN Tobacco use date assessed: 08/02/23 Dental Screening Dental Screen Date: 04/19/23 HPI F/U CPE + labs HPI Details 63 y/o male presents to f/u CPE-labs via telemedicine. Labs were drawn 08/06/23. Reviewed labs with pt. Elevated fasting glucose 117. Tirglycerides 57. TC 196. LDL 134. HDL 51. Has not been able to trial Ozempic as he states they needed a substitute for it. [facility] Medical History Hypertension Surgical History History of cholecystectomy History of wisdom tooth extraction Family History (Updated 08/02/23 @ 12:01 by Radha Lyons CMA) Father No problems noted. Mother Cancer Brother Cancer of prostate Social History Housing: House Alcohol intake: current Alcohol intake frequency: a few times a week Patient Tobacco Use Status: Never used Tobacco e-Cigarette/Vaping Use: Never Used Second Hand Smoke Exposure: No service: No Current occupational status: employed and retired Current occupational exposures/hazards: No Cognitive needs: No Hearing needs: No Vision needs: No Questionnaire Thrive Questionnaire Date Thrive assessed: 04/19/23 WIL-7 AMB Questionnaire WIL-7 Date WIL - 7 assessed: 04/19/23 Source: Developed by Drs. Micha Mendoza, Tanja Velasquez, Bubba Rdz and colleagues, with an educational lynne from [employer]. Physical exam (Primary Care) Tobacco/Smoking Status: Tobacco use Status Tobacco use date assessed 08/02/23 08/27/23 10:37 Patient Tobacco Use Status Never used Tobacco 08/27/23 10:37 e-Cigarette/Vaping Use Never Used 08/27/23 10:37 Thrive Assessment: Date of Thrive Assessment Date Thrive assessed 04/19/23 08/27/23 10:37 Telehealth Telehealth Telehealth Platform: Telephone Location of provider rendering services: practice address Location of patient: address on file Patient Identification confirmed using: Name, : Yes Telehealth method: voice only Patient verbally consented to treatment: Yes Patient verbally consented to billing insurance company: Yes Patient informed of any privacy concerns related to visit: Yes Minutes spent on Phone/Video with Pt.: 10 Assessment and Plan Assessment & Plan (1) Hyperlipidemia: Code(s): E78.5 - Hyperlipidemia, unspecified Plan: LDL?cholesterol?is?too?high.??Goal?is?less?than?100 Encouraged?a?diet?lower?in?saturated?fats?and?cholesterol Encouraged?weight?loss Will?recheck?in?3?months (2) Elevated fasting glucose: Code(s): R73.01 - Impaired fasting glucose Plan: Fasting?blood?sugar?117?and?patient?has?history?of?pre?diabetes Will?check?A1c?at?his?next?visit Encouraged?a?diet?lower?in?sugars?and?starches (3) Screening for prostate cancer: Code(s): Z12.5 - Encounter for screening for malignant neoplasm of prostate Plan: PSA?was?within?normal?range (4) BMI 45.0-49.9, adult: Code(s): Z68.42 - Body mass index [BMI] 45.0-49.9, adult Plan: Morbidly?obese Had?prescribed?trial?of?Ozempic?but?patient?was?unable?to?pick?this?up?due?to?in surance?rejection. Also?has?pre ?diabetes?and?blood?sugar?is?significantly?elevated.??Will?check?A1c?with?next?l ab?draw However,?will?try?Wegovy Orders: Orders Hemoglobin A1c Today R73.01 - Impaired fasting glucose, R73.03 - Prediabetes Lipid Panel Today E78.5 - Hyperlipidemia, unspecified, Z00.00 - Encounter for general adult medical examination without abnormal findings Comprehensive [place]. Panel Fast Today E78.5 - Hyperlipidemia, unspecified, Z00.00 - Encounter for general adult medical examination without abnormal findings Medications: New mometasone 200 mcg/actuation (Asmanex HFA) 1 puff inhalation BID 13 grams 4RF 30 days semaglutide (weight loss) (Wegovfrancie) administer weeks 1 through 4 of therapy 0.25 mg (0.5 mL) subcut QWEEK 2 mL 3RF 28 days Changed From amlodipine 5 mg PO DAILY 30 days 30 tabs 2RF To amlodipine 5 mg PO DAILY 90 tabs 2RF 90 days Discontinued beclomethasone dipropionate 40 mcg/actuation (Qvar RediHaler) Discontinued Reason: Doctor's Order 1 inh PO BID 3 months 3 ea 3RF Coding Level of Care Code Tele Est Pt Level 2 (64596) Diagnoses Hyperlipidemia E78.5 Elevated fasting glucose R73.01 Screening for prostate cancer Z12.5 BMI 45.0-49.9, adult Z68.42
== END ==
PROVIDERS: PCP Family Medicine; Visit Provider Family Medicine
DX: E78.5 Hyperlipidemia, unspecified (principal); R73.01 Impaired fasting glucose; Z68.42 Body mass index [BMI] 45.0-49.9, adult; E66.01 Morbid (severe) obesity due to excess calories; Z12.5 Encounter for screening for malignant neoplasm of prostate
CPT/HCPCS: 99441

== ENCOUNTER 2023-12-03 10:06 | Outpatient (REF) | payer OTHER, SELFPAY ==
[2023-12-03 11:36] LABS: Estimated Average Glucose 117 mg/dL; Hemoglobin A1C 148.3625 umol/L; Hemoglobin A1c % 5.7 % (<6.0)
[2023-12-03 11:43] LABS: Alanine Aminotransferase 17 U/L (0-40); Albumin Level 4.3 g/dL (3.5-5.0); Alkaline Phosphatase 73 U/L (39-117); Anion Gap 14 (12-20); Aspartate Amino Transferase 13 U/L (5-37); Bilirubin Total 1.2 mg/dL (0.0-1.0); Blood Urea Nitrogen 15 mg/dL (9-16); Calcium 9.9 mg/dL (8.4-10.2); Carbon Dioxide 28 mmol/L (22-29); Chloride 101 mmol/L (96-108); Cholesterol 197 mg/dL (<200); Estimated Glomerular Filt Rate > 60; Glucose Fasting 112 mg/dL (60-99); HDL Cholesterol 44 mg/dL (>40); LDL Cholesterol Calculated 137 mg/dL (<100); Potassium 3.5 mmol/L (3.3-5.1); Sodium 139 mmol/L (135-145); Total Protein 7.3 g/dL (6.5-8.0); Triglycerides 84 mg/dL (<150)
== END 2023-12-03 10:07 | disposition home or self-care (01) ==
LOC: HO.LAB 10:06
PROVIDERS: PCP Family Medicine; Visit Provider Family Medicine
DX: Z00.00 Encounter for general adult medical examination without abnormal findings (principal); E78.5 Hyperlipidemia, unspecified; R73.03 Prediabetes
CPT/HCPCS: 36415; 80053; 80061; 83036

== ENCOUNTER 2023-12-06 08:28 | Outpatient (AMB) | payer OTHER, SELFPAY ==
--- NOTE | 2023-12-06 08:38 | A.OFFPC_ITS ---
Vital Signs 12/06/23 08:41 Height 6 ft 2 in Weight 366 lb 8 oz BMI 47.1 BP 120/70 Blood Pressure Location Rt brachial Position Sitting Respiration 12 Pulse 75 Pulse Source Pulse Oximeter Temp 96.9 F Temp Source Tympanic Pulse Oximetry (%) 94 Oxygen Delivery Method Room Air Intake Visit Reasons: hyperlipidemia and elevated fasting blood sugars Intake Note: F/u lab review Allergies Seasonal Allergies Allergy (Verified 12/06/23 08:39) sneezing, runny nose Medication List - Last Reconciled 12/06/23 by Donnie Butterfield MD albuterol sulfate 2.5 mg (0.5 mL) inhalation Q20M albuterol sulfate 90 mcg/actuation 2 puffs PO Q4H PRN 90 days amlodipine 5 mg PO DAILY 90 days budesonide 180 mcg/actuation (Pulmicort Flexhaler) 1 inh inhalation BID 3 months chlorthalidone 50 mg PO QAM cyclobenzaprine 5 mg PO BID doxycycline hyclate 20 mg PO BID ibuprofen 600 mg PO TID lisinopril 20 mg PO DAILY 90 days montelukast 10 mg PO DAILY 90 days nebulizers (Aeroneb Go Nebulizer) As directed semaglutide (weight loss) 1 mg (0.5 mL) subcut QWEEK 28 days sodium chloride 0.9% 1 mL inhalation Q15M PRN Tobacco use date assessed: 08/02/23 Dental Screening Dental Screen Date: 04/19/23 HPI hyperlipidemia and elevated fasting blood sugars HPI Details 63 y/o male presents to f/u HLD, elevate d fasting glucose/pre-diabetes. Labs drawn 12/03/23. Reviewed labs with pt. A1c 5.7%. Fasting glucose 112. Triglycerides 84. TC 197. LDL 137. HDL 44. Blood pressure today 120/70, 75p. He is on lisinopril 20mg, amlodipine 5mg daily. HPI Comments History of Present Illness Details Documentation assistance for Donnie Butterfield MD, was provided by Tyson Gomez, Bone Cooking Operator on 12/06/2023 at 8:54 AM SHEILA. I, Dr. Butterfield, have read, observed, and verified documentation. PFSH Medical History Hypertension Surgical History History of cholecystectomy History of wisdom tooth extraction Family History (Updated 08/02/23 @ 12:01 by Radha Lyons CMA) Father No problems noted. Mother Cancer Brother Cancer of prostate Social History Housing: House Alcohol intake: current Alcohol intake frequency: a few times a week Patient Tobacco Use Status: Never used Tobacco e-Cigarette/Vaping Use: Never Used Second Hand Smoke Exposure: No service: No Current occupational status: employed and retired Current occupational exposures/hazards: No Cognitive needs: No Hearing needs: No Vision needs: No Questionnaire Thrive Questionnaire Date Thrive assessed: 04/19/23 WIL-7 AMB Questionnaire WIL-7 Date WIL - 7 assessed: 04/19/23 Source: Developed by Drs. Micha Mendoza, Tanja Velasquez, Bubba dRz and colleagues, with an educational lynne from [employer]. Review of Systems Const Denies chills, Denies fatigue, Denies fever(s), Denies headache(s) and Denies weakness ENT Denies dizziness and Denies headache(s) Card Denies dyspnea Resp Denies cough, Denies dyspnea, Denies wheezing and Denies other (shortness of breath) Musc Reports back pain (Low back pain, R ), Denies numbness and Denies tingling Neuro Denies dizziness, Denies headache(s), Denies numbness, Denies tingling and Denies weakness Psych Denies anxiety and Denies depression Endo Denies fatigue Aller/Immun Denies wheezing Physical exam (Primary Care) Vital Signs: Last Vital Signs Temp 96.9 F 12/06/23 08:41 Pulse 75 12/06/23 08:41 Resp 12 12/06/23 08:41 BP 120/70 12/06/23 08:41 Pulse Ox 94 12/06/23 08:41 Oxygen Delivery Method Room Air 12/06/23 08:41 BMI result Body Mass Index 47.1 Tobacco/Smoking Status: Tobacco use Status Tobacco use date assessed 08/02/23 12/06/23 08:38 Patient Tobacco Use Status Never used Tobacco 12/06/23 08:38 e-Cigarette/Vaping Use Never Used 12/06/23 08:38 Thrive Assessment: Date of Thrive Assessment Date Thrive assessed 04/19/23 12/06/23 08:38 Const General: well developed; No acute distress Nutritional Appearance: obese morbidly obese Orientation/consciousness: patient oriented x3 HENMT Head: Yes normocephalic and Yes atraumatic Eyes General: appearance normal, both eyes and all related structures Pupils: Equal, round and reactive pupils present EOM: EOMs intact bilaterally Resp Effort & Inspection: normal respiratory effort Neuro General: patient oriented x3 and gait normal Cranial nerves: Yes Equal, round and reactive pupils present Psych Affect: normal affect Assessment and Plan Assessment & Plan (1) Essential hypertension: Code(s): I10 - Essential (primary) hypertension Plan: Blood?pressure?is?controlled.??Goal?is?less?than?140/90 Continue?current?medication (2) Hyperlipidemia: Code(s): E78.5 - Hyperlipidemia, unspecified Plan: LDL?cholesterol?is?too?high Patient?says?he?had?been?on?a?statin?in?the?past Will?restart?statin?medication?using?atorvastatin?20?mg?daily Watch?saturated?fats?and?cholesterol?in?diet Work?at?exercise (3) Pre-diabetes: Code(s): R73.03 - Prediabetes Plan: A1c?about?5.7%.??Early?pre?diabetes?range. Patient?has?been?given?Wegovy?but?did?have?a?significant?pause?in?the?medication ?due?to?inaccessibility. Patient?is?back?on?this?medication?and?I?encouraged?a?di et?lower?in?sugars?and?starches Encouraged?weight?loss?and?exercise (4) Morbid obesity: Code(s): E66.01 - Morbid (severe) obesity due to excess calories Plan: As?above,?patient?is?on?Wegovy?for?weight?loss He?did?have?an?interruption?in?access?to?Wegovy. He?has?lost?some?weight?and?I?encouraged?ongoing?diet?and?exercise Continue?Wegovy?and?he?will?be?ready?for?dose?increase?in?a?couple?of?weeks- sent?script?now. (5) Back pain: Code(s): M54.9 - Dorsalgia, unspecified Plan: Patient?strained?lower?back He?was?given?a?muscle?relaxant?at?urgent?care Encouraged?relative?rest,?ice/heat?and?he?can?use?NSAIDs?or?Tylenol. Work?at?gentle?stretching?as?back?improves Call?or?return?to?office?if?not?improving?or?worsens (6) Immunization counseling: Code(s): Z71.85 - Encounter for immunization safety counseling Plan: Patient?can?get?flu?shot,?RSV?and?optimally?he?can?get?hepatitis- B?vaccine?as?well. Also?recommended?COVID?shot Medications: Changed From semaglutide (weight loss) 1 mg (0.5 mL) subcut QWEEK 28 days 2 mL 3RF To semaglutide (weight loss) 1.7 mg (0.75 mL) subcut QWEEK 3 mL 3RF 28 days Coding Level of Care Code Est Pt Level 4 (18053) Diagnoses Essential hypertension I10 Hyperlipidemia E78.5 Pre-diabetes R73.03 Morbid obesity E66.01 Back pain M54.9 Immunization counseling Z71.85
[2023-12-06 08:41] VITALS: BP 120/70; PULSE 75; RESP 12; TEMP 36.1; O2SAT 94; BMI 47.1
== END 2023-12-06 09:13 | disposition home or self-care (01) ==
PROVIDERS: PCP Family Medicine; Visit Provider Family Medicine
DX: I10 Essential (primary) hypertension (principal); E66.01 Morbid (severe) obesity due to excess calories; Z68.42 Body mass index [BMI] 45.0-49.9, adult; E78.5 Hyperlipidemia, unspecified; R73.03 Prediabetes; M54.9 Dorsalgia, unspecified; Z71.85 Encounter for immunization safety counseling
CPT/HCPCS: 99214

== ENCOUNTER 2024-02-04 11:08 | Outpatient (REF) | payer OTHER, SELFPAY ==
[2024-02-04 12:17] LABS: Prostate Specific Antigen 1.12 ng/mL (<0.05-4.0)
== END 2024-02-04 11:09 | disposition home or self-care (01) ==
LOC: HO.LAB 11:08
PROVIDERS: PCP Family Medicine; Visit Provider Urology
DX: N40.1 Benign prostatic hyperplasia with lower urinary tract symptoms (principal); R35.1 Nocturia; Z12.5 Encounter for screening for malignant neoplasm of prostate
CPT/HCPCS: 36415; 84153

== ENCOUNTER 2024-02-06 08:53 | Outpatient (AMB) | payer OTHER, SELFPAY ==
--- NOTE | 2024-02-06 08:55 | A.OFFVIS_ITS ---
Intake Visit Reasons: 1Y PSA/PVR(set) Intake Note: Patient is present for PSA Follow Up Urology Med: None Antibiotic Allergy: None Blood Thinner: None Last PVR: 88 PSA: 02/04/24- 1.12 08/06/23- 0.93 Hemoglobin A1C: 12/03/2023 5.7 Patient reports he has lost 40lbs and is doing great Reports that with weight loss his urination has became a lot better Urination has improved Catering Sales Manager Required: No Accompanied by: Self / Same As Patient Allergies Seasonal Allergies Allergy (Verified 02/06/24 08:59) sneezing, runny nose HPI Comments Details: Mr Bravo is a very pleasant male. They are a patient of Dr. Hale. They are seen in the office today for the following urologic conditions. 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 Prior treatment includes fluid restriction, alpha lashay, 5-AR. Prostate Symptom Score 1/9 , Moderate (9-19), Bother 3 PSA - 01/13 0.26, 02/14 0.9, 02/15 1.2 Symptoms include 04/13 , incomplete emptying, weak stream, nocturia (>2), and are progressing / , incomplete emptying, weak stream, , and are improving. Results from testing include cystoscopy no abnormality seen 04/13 cytology - chronic inflammation Testing at next visit will include bladder scan. Treatment plan continue with current medications [facility] Medical History Hypertension Surgical History History of cholecystectomy History of wisdom tooth extraction Family History Father No problems noted. Mother Cancer Brother Cancer of prostate Social History Housing: House Alcohol intake: current Alcohol intake frequency: a few times a week Patient Tobacco Use Status: Never used Tobacco e-Cigarette/Vaping Use: Never Used Second Hand Smoke Exposure: No service: No Current occupational status: employed and retired Current occupational exposures/hazards: No Cognitive needs: No Hearing needs: No Vision needs: No Review of Systems Const Denies chills and Denies fever(s) Card Reports no additional complaints and Denies syncope Resp Denies cough GI Denies abdominal pain and Denies heartburn Reports as per HPI and Denies change in libido Neuro Denies syncope Psych Denies change in libido Endo Denies change in libido Physical Exam Const General: cooperative, healthy appearing, comfortable and no acute distress Orientation/consciousness: patient oriented x3 HEENT Face and sinus: Yes normal facial exam Mouth: moist mucous membranes Neck Neck: Yes normal visual inspection, Yes full ROM and Yes trachea midline Chest Chest palpation & inspection: normal inspection of the chest Resp Effort & Inspection: normal respiratory effort, able to speak in complete sentences and no respiratory distress GI Inspection: Yes normal to inspection Back/Spine/Pelvis Cervical Spine: normal cervical lordosis Thoracic/Lumbar Spine: thoracic and lumbar spine normal to inspection Skin General skin exam: no rashes or lesions noted Neuro General: patient oriented x3, gait normal, tone normal and moves all extremities Extrem General: Yes normal to inspection and Yes capillary refill normal Assessment & Plan Assessment & Plan (1) BPH associated with nocturia: Code(s): N40.1 - Benign prostatic hyperplasia with lower urinary tract symptoms; R35.1 - Nocturia Category: Medical (2) Microscopic hematuria: Code(s): R31.29 - Other microscopic hematuria Category: Medical Plan Twelve month follow-up Patient Instructions: Imaging studies, laboratory and physical exam results were discussed and reviewed in detail. No major barriers to patient understanding were identified. An opportunity to ask questions regarding the treatment plan was provided. All questions were answered. The patient expressed understanding and agreement with the above treatment plan. The patient is aware they should contact our office by phone for worsening of their current condition or the appearance of new urologic symptoms. Compliance is encouraged with any medications and followup testing that is ordered. It is a privilege to participate in the urologic care of your patient. If you have any questions or concerns regarding treatment for the above conditions, or other urologic issues, please do not hesitate to contact me. The office telephone contact is [phone]. This note is constructed using voice recognition software. While every effort has been made to ensure accuracy sprayer auto parts errors may have been included. Yours sincerely, Dr Jeison Hazel MD, [facility] - Urology Providers of Expert, Compassionate Care for the Genitourinary System Coding Level of Care Code Est Pt Level 4 (46400) Diagnoses BPH associated with nocturia N40.1; R35.1 Microscopic hematuria R31.29
== END 2024-02-06 09:40 | disposition home or self-care (01) ==
PROVIDERS: PCP Family Medicine; Visit Provider Urology
DX: N40.1 Benign prostatic hyperplasia with lower urinary tract symptoms (principal); R35.1 Nocturia; R31.29 Other microscopic hematuria
CPT/HCPCS: 99214

== ENCOUNTER 2024-03-03 10:59 | Outpatient (REF) | payer OTHER, SELFPAY ==
[2024-03-03 12:09] LABS: Estimated Average Glucose 117 mg/dL; Hemoglobin A1C 146.3742 umol/L; Hemoglobin A1c % 5.7 % (<6.0); Total Hemoglobin (HGBA1C) 3765.2027 umol/L
[2024-03-03 12:56] LABS: Alanine Aminotransferase 29 U/L (0-40); Albumin Level 4.3 g/dL (3.5-5.0); Alkaline Phosphatase 77 U/L (39-117); Anion Gap 10 (12-20); Aspartate Amino Transferase 20 U/L (5-37); Bilirubin Total 1.2 mg/dL (0.0-1.0); Blood Urea Nitrogen 19 mg/dL (9-16); Calcium 9.6 mg/dL (8.4-10.2); Carbon Dioxide 32 mmol/L (22-29); Chloride 98 mmol/L (96-108); Cholesterol 147 mg/dL (<200); Estimated Glomerular Filt Rate > 60; Glucose Fasting 109 mg/dL (60-99); HDL Cholesterol 46 mg/dL (>40); LDL Cholesterol Calculated 89 mg/dL (<100); Potassium 3.5 mmol/L (3.3-5.1); Sodium 136 mmol/L (135-145); Total Protein 7.4 g/dL (6.5-8.0); Triglycerides 62 mg/dL (<150)
--- OUTSIDE RECORDS SUMMARY | 2024-03-05 14:57 | XMS_ITS | Patient Health Record ---
Author Organization [facility] Address [address] [place] [id number] Care Team Providers Care Well Surveying Engineer Name Role Phone Donnie Butterfield Primary Care Provider UnavailMicha Salazar [phone] ALLERGIES No Known Allergies REASON FOR REFERRAL No Information MEDICATIONS Medication SIG (Take, Route, Frequency, Duration) Notes Start Date End Date Status Albuterol Sulfate HFA 108 (90 Base) MCG/ACT PLEASE SEE ATTACHED FOR DETAILED DIRECTIONS Inhalation for 90 Active Doxycycline Hyclate 20mg 1 capsule Orally prn Dec through July for gingivitis Active Wegovy 1 MG/0.5ML 0.5 mL Subcutaneous for 30 day(s) For weight loss Active Pulmicort 0.5 MG/2ML 1 mL Inhalation Twice a day Active Lisinopril 20 MG 1 tablet Orally Once a day Active Cialis 20 MG 1 tablet Orally prn Active Chlorthalidone 50 MG TAKE 1 TABLET BY MOUTH EVERY MORNING Oral for 90 Active Montelukast Sodium 10 MG Oral for 90 Active amLODIPine Besylate 5 MG TAKE 1 TABLET BY MOUTH EVERY DAY Oral for 90 Active IMMUNIZATIONS Vaccine Route Administration Date Status Comme nts Influenza Unknown 01/01/2018 Administered SOCIAL HISTORY Sex Assigned At : Social History Observation Description Sex Assigned At Unknown PROBLEMS Problem Type ICD Code Onset Dates Problem Status W/U Status Risk SNOMED Code Notes Problem Encounter for screening for malignant neoplasm of colon (Z12.11) Active confirmed 384610541 Problem History of adenomatous polyp of colon (Z86.010) Active confirmed 380429153 Problem Encounter for other preprocedural examination (Z01.818) Active confirmed Pre-procedure evaluation check (870109449) Problem Hypertension, unspecified type (I10) Active confirmed [id number] VITAL SIGNS Blood pressure diastolic 00 mm Hg 11/30/2023 Height 74 in 11/30/2023 Blood pressure systolic 00 mm Hg 11/30/2023 Weight 366 lbs 11/30/2023 BMI 46.99 kg/m2 11/30/2023 Encounters Encounter Location Date Provider Diagnosis [facility] [address] [place] [address] 11/30/2023 Micha Roberts History of adenomato us polyp of colon Z86.010 ; Encounter for other preprocedural examination Z01.818 and Encounter for screening for malignant neoplasm of colon Z12.11 ASSESSMENTS Encounter Date Diagnosis Assessment Notes Treatment Notes Treatment Clinical Notes 11/30/2023 History of adenomatous polyp of colon (ICD-10 - Z86.010) 11/30/2023 Encounter for other preprocedural examination (ICD-10 - Z01.818) 11/30/2023 Encounter for screening for malignant neoplasm of colon (ICD-10 - Z12.11) Do not take the Wegovy injection for at least 7 days before the colonoscopy Do not take the Chlorthalidone the day before nor on the day of the colonoscopy PLAN OF TREATMENT Future Test Test Name Order Date COLONOSCOPY 01/08/2013 COLONOSCOPY 07/03/2018 COLONOSCOPY 11/30/2023 Next Appt Details Provider Name:Micha Roberts , 04/18/2024 07:30:00 AM, [address] [place] [address] , [place], [place], [phone], Insurance Providers Payer Name Payer Address Payer Phone Subscriber Number Group Number Insured Name Patient Relationship to Insured Coverage Start Date Coverage End Date [employer] ([employer]) [address] [place] [address] [phone] [id number] BRANDI JACOB Self - patient is the insured MEDICAL (GENERAL) HISTORY Medical History History ICD Code Hypertension Denies [place],DM,CVA,renal disease On doxycycline for gingivitis December Asthma Colonoscopy 03/2013-small tubular adenoma removed Obesity--on Wegovy-started 07/2023--has l ost 10 pounds as of the 11/2023 OV Negative screening colonoscopy 08/2018 Surgical History Surgery Date(Month/Year) Cholecystectomy--at [facility] 2020
--- OUTSIDE RECORDS SUMMARY | 2024-03-05 14:57 | XMS_ITS ---
Author Organization [facility] Address [address] [place] [id number] Care Team Providers Care Herbarium Curator Name Role Phone Donnie Butterfield Primary Care Provider Micha Branch Unavailable [phone] ALLERGIES No Known Allergies REASON FOR VISIT Patient presents today for a colon screening MEDICATIONS Medication SIG (Take, Route, Frequency, Duration) Notes Start Date End Date Status Albuterol Sulfate HFA 108 (90 Base) MCG/ACT PLEASE SEE ATTACHED FOR DETAILED DIRECTIONS Inhalation for 90 Active Doxycycline Hyclate 20mg 1 capsule Orally prn Dec through July for gingivitis Active Chlorthalidone 50 MG TAKE 1 TABLET BY MOUTH EVERY MORNING Oral for 90 Active Montelukast Sodium 10 MG Oral for 90 Active amLODIPine Besylate 5 MG TAKE 1 TABLET BY MOUTH EVERY DAY Oral for 90 Active Wegovy 1 MG/0.5ML 0.5 mL Subcutaneous for 30 day(s) For weight loss Active Pulmicort 0.5 MG/2ML 1 mL Inhalation Twice a day Active Lisinopril 20 MG 1 tablet Orally Once a day Active Cialis 20 MG 1 tablet Orally prn Active PROBLEMS Problem Type ICD Code Onset Dates Problem Status W/U Status Risk SNOMED Code Notes Problem Encounter for other preprocedural examination (Z01.818) Active confirmed Pre-procedure evaluation check ([id number]) VITAL SIGNS BMI 46.99 kg/m2 11/30/2023 Blood pressure systolic 00 mm Hg 11/30/19 24 Blood pressure diastolic 00 mm Hg 024 Height 74 in 11/30/2023 Weight 366 lbs 11/30/2023 Encounters Encounter Location Date Provider Diagnosis [facility] [address] [place] [address] 11/30/2023 Micha Roberts History of adenomato us [...] day of the colonoscopy PLAN OF TREATMENT Treatment Notes Assessment Notes Encounter for screening for malignant neoplasm of colon Do not take the Wegovy injection for at least 7 days before the colonoscopy Do not take the Chlorthalidone the day before nor on the day of the colonoscopy Future Test Test Name Order Date COLONOSCOPY 11/30/2023 Next Appt Details Follow Up: prn, Reason: Provider Name:Micha Roberts , 04/18/2024 07:30:00 AM, [address] [place] [address] , [place], [place], [phone], Progress Notes * Examination Category Sub-Category Detail Notes General Examination GENERAL APPEARANCE: pleasant , well nourished, well developed, in no acute distress EYES: sclera non-icteric NECK/THYROID: no cervical lymphade nopathy, neck supple HEART: S1, S2 normal LUNGS: clear to auscultatio n bilaterally ABDOMEN: normal bowel sounds, no guarding or rigidity, no hepatosplenomegaly, no masses palpable, soft, nontender, nondistended. NEUROLOGIC: alert and oriented SKIN: nonjaundiced, no spi chavez angiomata. EXTREMITIES: no edema ORAL CAVITY: mucosa moist
== END 2024-03-03 11:00 | disposition home or self-care (01) ==
LOC: HO.LAB 10:59
PROVIDERS: PCP Family Medicine; Visit Provider Family Medicine
DX: Z00.00 Encounter for general adult medical examination without abnormal findings (principal); R73.01 Impaired fasting glucose
CPT/HCPCS: 36415; 80053; 80061; 83036

== ENCOUNTER 2024-03-24 10:26 | Outpatient (AMB) | payer OTHER, SELFPAY ==
--- NOTE | 2024-03-24 10:34 | A.OFFPC_ITS ---
Vital Signs 03/24/24 10:39 Height 6 ft 2 in Weight 355 lb 8 oz BMI 45.6 BP 126/66 Blood Pressure Location Rt brachial Position Sitting Respiration 16 Pulse 80 Pulse Source Palpation Intake Visit Reasons: f/u hypertension, pre-diabetes Intake Note: f/u dm and htn Allergies Seasonal Allergies Allergy (Verified 03/24/24 10:35) sneezing, runny nose Medication List - Last Reconciled 03/24/24 by Donnie Butterfield MD albuterol sulfate 2.5 mg (0.5 mL) inhalation Q20M albuterol sulfate 90 mcg/actuation 2 puffs PO Q4H PRN 90 days amlodipine 5 mg PO DAILY 90 days atorvastatin 20 mg PO DAILY 90 days budesonide 180 mcg/actuation (Pulmicort Flexhaler) 1 inh inhalation BID 3 months chlorthalidone 50 mg PO QAM cyclobenzaprine 5 mg PO BID doxycycline hyclate 20 mg PO BID ibuprofen 600 mg PO TID lisinopril 20 mg PO DAILY 90 days montelukast 10 mg PO DAILY 90 days nebulizers (Aeroneb Go Nebulizer) As directed semaglutide (weight loss) 2.4 mg (0.75 mL) subcut QWEEK 28 days semaglutide (weight loss) (Wegovy) mg subcut sodium chloride 0.9% 1 mL inhalation Q15M PRN Tobacco use date assessed: 08/02/23 Dental Screening Dental Screen Date: 04/19/23 HPI f/u hypertension, pre-diabetes HPI0 Details 63 y/o male presents to f/u hypertension , HLD, weight loss and pre- diabetes. Blood pressure today 126/66, 80p. He is on amlodipine 5mg, lisinopril 20mg daily. Labs drawn 03/03/24. Reviewed labs with pt. A1c 5.7%. Triglycerides 62. TC 147. LDL 89. HDL 46. He is on artovastatin 20mg daily. [facility] Medical History Hypertension Surgical History History of cholecystectomy History of wisdom tooth extraction Family History Father No problems noted. Mother Cancer Brother Cancer of prostate Social History Housing: House Alcohol intake: current Alcohol intake frequency: a few times a week Patient Tobacco Use Status: Never used Tobacco e-Cigarette/Vaping Use: Never Used Second Hand Smoke Exposure: No service: No Current occupational status: employed and retired Current occupational exposures/hazards: No Cognitive needs: No Hearing needs: No Vision needs: No Questionnaire PHQ-9 Over the last 2 weeks, how often have you been bothered by any of the following problems? 1. Little interest or pleasure in doing things: not at all 2. Feeling down, depressed, or hopeless: not at all 3. Trouble falling or staying asleep, or sleeping too much: not at all 4. Feeling tired or having little energy: not at all 5. Poor appetite or overeating: not at all 6. Feeling bad about yourself - or that you are a failure or have let yourself or your family down: not at all 7. Trouble concentrating on things, such as reading the newspaper or watching television: not at all 8. Moving or speaking so slowly that other people could have noticed. Or the opposite - being so fidgety or restless that you have been moving around a lot more than usual: not at all 9. Thoughts that you would be better off or of hurting yourself in some way: not at all Total score: 0 Source: Developed by Drs. Micha Mendoza, Tanja Velasquez, Bubba Rdz and colleagues, with an educational lynne from [employer]. Thrive Questionnaire Date Thrive assessed: 04/19/23 I am a: Patient What is your living situation today?: I have a steady place to live Within the past 12 months, did the food you bought not last and you didn't have the money to get more?: Never true Within the past 12 months, did you worry whether your food would run out before you got money to buy more?: Never true Do you have trouble paying for medicines?: No Do you have trouble getting transportation to medical appointments?: No Do you have trouble paying your heating and electricity bill?: No Do you have trouble taking care of your child, family member or friend?: No Do you have trouble with day-to-day activities such as bathing, preparing meals, shopping, managing finances, etc.?: No Are you currently unemployed and looking for a job?: No Are you interested in more education?: No Please select the resources that you would like help with: None Currently or been in a relationship where the following occur: No concerns reported THRIVE Score: 0 AUDIT C Alcohol Use Questionnaire (AUDIT-C) 1. How often do you have a drink containing alcohol?: 2-4 times a month 2. How many drinks containing alcohol do you have on a typical day when you are drinking?: 1 or 2 3. How often do you have six or more drinks on one occasion?: Never Total Score: 2 WIL-7 AMB Questionnaire WIL-7 Date WIL - 7 assessed: 04/19/23 Feeling nervous, anxious, or on edge: 0 = Not at all Not being able to stop or control worryin = Not at all Worrying too much about different things: 0 = Not at all Trouble relaxin = Not at all Being so restless that it is hard to sit still: 0 = Not at all Becoming easily annoyed or irritable: 0 = Not at all Feeling afraid as if something awful might happen: 0 = Not at all Total WIL-7 score (0-4 normal; 5-9 mild; 10-14 moderate; 15-21 severe): 0 Source: Developed by Drs. Micha Mendoza, Tanja Velasquez, Bubba Rdz and colleagues, with an educational lynne from [employer]. Review of Systems Const Denies chills, Denies fatigue, Denies fever(s), Denies headache(s) and Denies weakness ENT Denies dizziness and Denies headache(s) Card Denies dyspnea Resp Denies cough, Denies dyspnea, Denies wheezing and Denies other (shortness of breath) Musc Denies numbness and Denies tingling Neuro Denies dizziness, Denies headache(s), Denies numbness, Denies tingling and Denies weakness Psych Denies anxiety and Denies depression Endo Denies fatigue Aller/Immun Denies wheezing Physical exam (Primary Care) Vital Signs: Last Vital Signs Pulse 80 03/24/24 10:39 Resp 16 03/24/24 10:39 BP 126/66 03/24/24 10:39 BMI result Body Mass Index 45.6 Tobacco/Smoking Status: Tobacco use Status Tobacco use date assessed 08/02/23 03/24/24 10:44 Patient Tobacco Use Status Never used Tobacco 03/24/24 10:44 e-Cigarette/Vaping Use Never Used 03/24/24 10:44 PHQ-9: PHQ-9 Score PHQ-9: Total score 0 03/24/24 11:10 Thrive Assessment: Date of Thrive Assessment Date Thrive assessed 04/19/23 03/24/24 10:44 Currently or been in a relationship where the following occur: No concerns reported Const General: well developed; No acute distress Nutritional Appearance: well nourished Orientation/consciousness: patient oriented x3 HENMT Head: Yes normocephalic and Yes atraumatic Eyes General: appearance normal, both eyes and all related structures Pupils: Equal, round and reactive pupils present EOM: EOMs intact bilaterally Resp Effort & Inspection: normal respiratory effort Auscultation: clear to auscultation bilaterally Cardio Rate: regular rate Rhythm: regular rhythm Heart sounds: S1 normal heart sound present, S2 normal heart sound present, no gallops, no murmurs and no rubs Neuro General: patient oriented x3 and gait normal Cranial nerves: Yes Equal, round and reactive pupils present Psych Affect: normal affect Coding Level of Care Code Est Pt Level 4 (85367) Diagnoses Essential hypertension I10 Morbid obesity E66.01 Hyperlipidemia E78.5 Elevated fasting glucose R73.01 Assessment & Plan Assessment & Plan (1) Essential hypertension: Code(s): I10 - Essential (primary) hypertension Category: Medical Plan: Blood?pressure?is?well?controlled.??Goal?is?less?than?140/90 Continue?current?medications (2) Morbid obesity: Code(s): E66.01 - Morbid (severe) obesity due to excess calories Category: Medical Plan: Patient?is?on?Wegovy Had?had?an?interruption?in?the?medication?but?has?resumed?it?and?weight?loss?has ?resumed?as?well Continue?medication?as?prescribed (3) Hyperlipidemia: Code(s): E78.5 - Hyperlipidemia, unspecified Category: Medical Plan: Lipids?appear?well?controlled?on?atorvastatin Continue?medications (4) Elevated fasting glucose: Code(s): R73.01 - Impaired fasting glucose Category: Medical Plan: A1c?in?blood?sugars?elevated?despite?Wegovy Will?continue?to?follow
[2024-03-24 10:39] VITALS: BP 126/66; PULSE 80; RESP 16; BMI 45.6
== END 2024-03-24 11:17 | disposition home or self-care (01) ==
PROVIDERS: PCP Family Medicine; Visit Provider Family Medicine
DX: I10 Essential (primary) hypertension (principal); E66.01 Morbid (severe) obesity due to excess calories; Z68.42 Body mass index [BMI] 45.0-49.9, adult; E78.5 Hyperlipidemia, unspecified; R73.01 Impaired fasting glucose

== ENCOUNTER → 2024-03-24 10:26 | Outpatient (BNVA) | payer OTHER, SELFPAY | PROVIDERS: PCP Family Medicine; Visit Provider Family Medicine ==

== ENCOUNTER 2024-04-18 06:17 | Day surgery (SDC) | payer OTHER, SELFPAY ==
--- NOTE | 2024-04-17 09:41 | HO.ANESPROP2 ---
Documented by User: Ida Orellana NP 04/17/24 09:43 HPI - Anesthesia Eval Consult details Narrative: 64yo M for Colonoscopy BMI 45.6 Anesthesia Pre-Procedure Meds Is the patient on any of the following meds?: GLP1/DPP4 PMFSH Active Problems Active Problems: All Active Problems Morbid obesity (Acute) BMI 45.0-49.9, adult (Acute) Back pain (Acute) Pre-diabetes (Acute) Chalazion (Acute) Shingles (Acute) BPH associated with nocturia (Acute) Microscopic hematuria (Acute) Essential hypertension (Acute) Screening for colon cancer (Acute) Phrenic nerve paralysis (Acute) Annual visit for general adult medical examination without abnormal findings (Acute) Obesity (BMI 30.0-34.9) (Acute) Sore throat (Acute) Hyperlipidemia (Acute) Obesity (Acute) Immunization counseling (Acute) Morbid obesity with BMI of 40.0-44.9, adult (Acute) Asthma (Acute) Adult general medical exam (Acute) Weight gain (Acute) Screening for prostate cancer (Acute) Elevated fasting glucose (Acute) Past Medical History Medical History 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 Mother Cancer Brother Cancer of prostate Surgical History Surgical History History of cholecystectomy History of wisdom tooth extraction Social History Social History Housing: House Alcohol intake: current Alcohol intake frequency: holidays/special occasions only Patient Tobacco Use Status: Never used Tobacco e-Cigarette/Vaping Use: Never Used Second Hand Smoke Exposure: No Have you been hit, kicked, punched, or otherwise hurt by someone within the past year? If so, by whom?: No Are you DNR?: No Advance Directives: No Advance Directives Information Provided: Yes service: No Current occupational status: employed and retired Current occupational exposures/hazards: No Cognitive needs: No Hearing needs: No Vision needs: No Meds Allergies Allergy/AdvReac Type Severity Reaction Status Date / Time Seasonal Allergies Allergy sneezing, Verified 03/24/24 10:35 runny nose Home Medications ?Medication ?Instructions ?Recorded ?Confirmed ?Last Taken ?Type ibuprofen 600 mg tablet 600 mg PO TID 12/06/23 04/18/24 04/11/24 History Assessment and Plan Assessment Anesthesia Assessment: Chart Reviewed Documented by User: Radhika Montes MD 04/18/24 08:34 HPI - Anesthesia Eval Consult details Narrative: 64yo M for Colonoscopy BMI 45.6 Nurse reports patient was SOB walking to stretcher. Patient receiving inhaler treatment. 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 Mother Cancer Brother Cancer of prostate Family history of problems with anesthesia: No Surgical History Surgical History History of cholecystectomy History of wisdom tooth extraction History of Problems with Anesthesia: No Social History Social History Housing: House Alcohol intake: current Alcohol intake frequency: holidays/special occasions only Patient Tobacco Use Status: Never used Tobacco e-Cigarette/Vaping Use: Never Used Second Hand Smoke Exposure: No Have you been hit, kicked, punched, or otherwise hurt by someone within the past year? If so, by whom?: No Are you DNR?: No Advance Directives: No Advance Directives Information Provided: Yes service: No Current occupational status: employed and retired Current occupational exposures/hazards: No Cognitive needs: No Hearing needs: No Vision needs: No Meds Allergies Allergy/AdvReac Type Severity Reaction Status Date / Time Seasonal Allergies Allergy sneezing, Verified 03/24/24 10:35 runny nose Home Medications ?Medication ?Instructions ?Recorded ?Confirmed ?Last Taken ?Type ibuprofen 600 mg tablet 600 mg PO TID 12/06/23 04/18/24 04/11/24 History Exam Height,Weight and Vital Signs: Height 6 ft 2 in Weight 162.84 kg Vital Signs Temp Pulse Resp BP Pulse Ox O2 Del Method 04/18/24 06:41 98.5 F 89 20 168/72 H 94 Room Air Airway Mallampati Class: III TM Dist: >3cm Neck ROM: Full Loose/Missing/Broken Teeth: Yes ([place] teeth extracted. Denies broken or loose teeth ) Heart: RRR Lungs: CTAB post respiratory treatment Assessment and Plan Assessment Anesthesia Assessment: Anesthesia Plan Discussed and Chart Reviewed Final Anesthetic Review Family History of Problems with Anesthesia: No History of Problems with Anesthesia: No NPO: Yes ASA Class: III Final Preanesthetic Review: No Changes in Pt Med Stat, Meds/Allgs Chart Reviewed, Consent Obtained/Reviewed and Anes Risks/Benef Reviewed Patient Risk: Intermediate Procedure Risk: Low Assessment/Block/Sedation in SS: Assess/Block/Sedation-SS Anesthetic Plan Anesthetic Plan: TIVA Disposition: Standard PACU
[2024-04-18] VITALS (8 sets, daily range): BP systolic 97–168; BP diastolic 46–72; PULSE 65–89; RESP 20–30; TEMP 36.4–36.9; O2SAT 93–95; BMI 46.1
--- NOTE | 2024-04-18 07:11 | PC.NURSE ---
pt sob with miminial exertion left lower lobe wheezing resp called for tx
[2024-04-18] MEDS: Lactated Ringers 1,000 ML 100 ML IVCONT (07:16)
[2024-04-18] MEDS: Albuterol Sulfate (0.083%) 2.5 MG/3 ML VIAL.NEB INHALE (07:23)
--- NOTE | 2024-04-18 08:47 | P.BOP_ITS ---
Brief Operative Note Date of Service: 04/18/24 Pre-op diagnosis: Screening Post-op diagnosis: other (Colon polyp) Procedure: Colonoscopy to the cecum with hot snare polypectomy x 1 Surgeon: Micha Roberts MD Anesthesia: MAC Was an Manager Terminal used for this Procedure?: No Estimated blood loss (mL): 0 Pathology: other (A. Transverse colon polyp) Condition: stable Disposition: PACU
--- NOTE | 2024-04-18 09:23 | OP_ITS ---
DATE OF SERVICE: 04/18/2024 SURGEON: Micha Roberts MD INDICATIONS: The patient presents for evaluation of colorectal cancer screening and personal history of tubular adenoma of the colon. Full consent has been obtained from him for this, including risks of bleeding and perforation. PREOPERATIVE DIAGNOSIS: POSTOPERATIVE DIAGNOSIS: PROCEDURE PERFORMED: Colonoscopy to the cecum with hot snare polypectomy x1. ESTIMATED BLOOD LOSS: COMPLICATIONS: ANESTHESIA: Monitored anesthesia care. ASSISTANTS: SPECIMENS: PREOPERATIVE DIAGNOSES: Colorectal cancer screening and personal history of tubular adenoma of the colon. POSTOPERATIVE DIAGNOSES: Colorectal cancer screening, personal history of tubular adenoma of the colon, colon polyp, diverticulosis, cecal AVM, and internal hemorrhoids. DESCRIPTION OF PROCEDURE: The patient was placed in the left lateral decubitus position. The digital rectal exam revealed no abnormalities. The Olympus video pediatric colonoscope was then entered into the rectum and advanced to the cecum with the assistance of abdominal wall pressure. Once in the cecum I did see a 5mm nonbleeding AVM . This was not treated. I did identify an otherwise normal-appearing cecal pouch with appendiceal orifice and a normal-appearing ileocecal valve. The entire cecum and ileocecal valve appeared normal. The scope was slowly withdrawn assessing all mucosal surfaces carefully. Preparation was excellent after a lot of irrigation and suctioning. In the distal transverse colon, was an approximately 10 mm grossly adenomatous polyp, which was removed by hot snare polypectomy and recovered by suction. The polypectomy site appeared clean, without any sign of residual polyp nor bleeding. I did not visualize any other polyps, colitis, nor angiodysplasias. There was a mild amount of sigmoid diverticulosis. In the rectum, scope was retroflexed, visualizing internal hemorrhoids, but no other pathology. The rectal mucosa appeared normal. The scope was straightened and withdrawn from the patient. He tolerated the procedure well and was returned to the recovery area in stable condition. IMPRESSION: 1. Colon polyp. 2. Diverticulosis. 3. Internal hemorrhoids. 4. Cecal AVM PLAN: The results of the pathology will be checked. I would recommend a repeat colonoscopy in 5 years. He was advised not to use any aspirin or NSAIDs for 1 week. He will, otherwise, see me on a p.r.n. basis. This has been discussed with his . MD EDUIN Cheek/ENMA / [id number] JUDY
== END 2024-04-18 10:34 | disposition home or self-care (01) ==
PROVIDERS: PCP Family Medicine; Visit Provider Internal Medicine
PROC: 0DJD8ZZ Inspection of Lower Intestinal Tract, Via Natural or Artificial Opening Endoscopic (ICD-10-PCS; CPT 45378; principal; 2024-04-18 07:30)
DX: Z12.11 Encounter for screening for malignant neoplasm of colon (principal); Z86.0101 Personal history of adenomatous and serrated colon polyps; D12.3 Benign neoplasm of transverse colon; K57.30 Diverticulosis of large intestine without perforation or abscess without bleeding; K64.8 Other hemorrhoids; I10 Essential (primary) hypertension; J45.909 Unspecified asthma, uncomplicated; E66.9 Obesity, unspecified; Z68.42 Body mass index [BMI] 45.0-49.9, adult; Z79.51 Long term (current) use of inhaled steroids; Z79.899 Other long term (current) drug therapy; Z90.49 Acquired absence of other specified parts of digestive tract
CPT/HCPCS: 45385; 88305; J2003; J2704

== ENCOUNTER 2024-06-23 09:30 | Outpatient (AMB) | payer OTHER, SELFPAY ==
--- NOTE | 2024-06-23 09:41 | A.OFFPC_ITS ---
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 Required: No Allergies Seasonal Allergies Allergy (Verified 06/23/24 09:47) sneezing, runny nose Medication List - Last Reconciled 06/23/24 by Donnie Butterfield MD albuterol sulfate 90 mcg/actuation 2 puffs PO Q4H PRN 90 days amlodipine 5 mg PO DAILY 90 days atorvastatin 20 mg PO DAILY 90 days budesonide 180 mcg/actuation (Pulmicort Flexhaler) 1 inh inhalation BID 3 months chlorthalidone 50 mg PO QAM lisinopril 20 mg PO DAILY 90 days montelukast 10 mg PO DAILY 90 days semaglutide (weight loss) 2.4 mg (0.75 mL) subcut QWEEK 28 days Tobacco use date assessed: 08/02/23 Dental Screening Dental Screen Date: 04/19/23 HPI BP & Weight & Elevated Fasting BS HPI Details 64 y/o male presents to f/u elevated FBS , blood pressures, weight. A1c today 06/23/24 5.9%. Blood pressure today 120/60, 76p. He is on lisinopril 20mg, amlodipine 5mg daily. Has not been taking semaglutide x2 months due to issues with paperwork. 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 Mother Cancer Brother Cancer of prostate Social History Housing: House Alcohol intake: current Alcohol intake frequency: holidays/special occasions only Patient Tobacco Use Status: Never used Tobacco e-Cigarette/Vaping Use: Never Used Second Hand Smoke Exposure: No service: No Current occupational status: employed and retired Current occupational exposures/hazards: No Cognitive needs: No Hearing needs: No Vision needs: No Questionnaire PHQ-9 Over the last 2 weeks, how often have you been bothered by any of the following problems? 1. Little interest or pleasure in doing things: not at all 2. Feeling down, depressed, or hopeless: not at all 3. Trouble falling or staying asleep, or sleeping too much: not at all 4. Feeling tired or having little energy: not at all 5. Poor appetite or overeating: not at all 6. Feeling bad about yourself - or that you are a failure or have let yourself or your family down: not at all 7. Trouble concentrating on things, such as reading the newspaper or watching television: not at all 8. Moving or speaking so slowly that other people could have noticed. Or the opposite - being so fidgety or restless that you have been moving around a lot more than usual: not at all 9. Thoughts that you would be better off or of hurting yourself in some way: not at all Total score: 0 Depression Screening Interpretation: Negative Depression Screening Done: Yes 73526 - PHQ-9 Billing: Yes Source: Developed by Drs. Micha Mendoza, Tanja Velasquez, Bubba Rdz and colleagues, with an educational lynne from [employer]. Thrive Questionnaire Date Thrive assessed: 04/19/23 I am a: Patient What is your living situation today?: I have a steady place to live Within the past 12 months, did the food you bought not last and you didn't have the money to get more?: Never true Within the past 12 months, did you worry whether your food would run out before you got money to buy more?: Never true Do you have trouble paying for medicines?: No Do you have trouble getting transportation to medical appointments?: No Do you have trouble paying your heating and electricity bill?: No Do you have trouble taking care of your child, family member or friend?: No Do you have trouble with day-to-day activities such as bathing, preparing meals, shopping, managing finances, etc.?: No Are you currently unemployed and looking for a job?: No Are you interested in more education?: No Please select the resources that you would like help with: None Currently or been in a relationship where the following occur: No concerns reported THRIVE Score: 0 AUDIT C Alcohol Use Questionnaire (AUDIT-C) 1. How often do you have a drink containing alcohol?: 2-4 times a month 2. How many drinks containing alcohol do you have on a typical day when you are drinking?: 1 or 2 3. How often do you have six or more drinks on one occasion?: Never Total Score: 2 WIL-7 AMB Questionnaire WIL-7 Date WIL - 7 assessed: 04/19/23 Feeling nervous, anxious, or on edge: 0 = Not at all Not being able to stop or control worryin = Not at all Worrying too much about different things: 0 = Not at all Trouble relaxin = Not at all Being so restless that it is hard to sit still: 0 = Not at all Becoming easily annoyed or irritable: 0 = Not at all Feeling afraid as if something awful might happen: 0 = Not at all Total WIL-7 score (0-4 normal; 5-9 mild; 10-14 moderate; 15-21 severe): 0 Source: Developed by Drs. Micha Mendoza, Tanja Velasquez, Bubba Rdz and colleagues, with an educational lynne from [employer]. Review of Systems Const Denies chills, Denies fatigue, Denies fever(s), Denies headache(s) and Denies weakness ENT Denies dizziness and Denies headache(s) Card Denies chest pain, Denies lightheadedness, Denies dyspnea and Denies other (Palpitations) Resp Denies cough, Denies dyspnea, Denies wheezing and Denies other ( shortness of breath) Musc Denies numbness and Denies tingling Neuro Denies dizziness, Denies headache(s), Denies numbness, Denies tingling, Denies paresthesias and Denies weakness Psych Denies anxiety and Denies depression Endo Denies fatigue Aller/Immun Denies wheezing Physical exam (Primary Care) Vital Signs: Last Vital Signs Temp 98.3 F 06/23/24 09:51 Pulse 76 06/23/24 09:51 Resp 16 06/23/24 09:51 BP 120/60 06/23/24 09:51 Pulse Ox 93 06/23/24 09:51 Oxygen Delivery Method Room Air 06/23/24 09:51 BMI result Body Mass Index 47.5 Tobacco/Smoking Status: Tobacco use Status Tobacco use date assessed 08/02/23 06/23/24 09:43 Patient Tobacco Use Status Never used Tobacco 06/23/24 09:43 e-Cigarette/Vaping Use Never Used 06/23/24 09:43 PHQ-9: PHQ-9 Score PHQ-9: Total score 0 06/23/24 10:15 Depression Screening Interpretation: Negative Thrive Assessment: Date of Thrive Assessment Date Thrive assessed 04/19/23 06/23/24 09:43 Currently or been in a relationship where the following occur: No concerns reported Const General: no acute distress and well developed Nutritional Appearance: obese morbidly obese Orientation/consciousness: patient oriented x3 HENMT Head: Yes normocephalic and Yes atraumatic Eyes General: appearance normal, both eyes and all related structures Pupils: Equal, round and reactive pupils present EOM: EOMs intact bilaterally Resp Effort & Inspection: normal respiratory effort Auscultation: clear to auscultation bilaterally Cardio Rate: regular rate Rhythm: regular rhythm Heart sounds: S1 normal heart sound present, S2 normal heart sound present, no gallops, no murmurs and no rubs Neuro General: patient oriented x3 and gait normal Cranial nerves: Yes Equal, round and reactive pupils present Psych Affect: normal affect Results AMB Hemoglobin A1c AMB Hemoglobin A1c 5.9 % Last Edit by MIA Thompson on 06/23/24 09:59 Results Reviewed Results Reviewed: Laboratory Last Values Hgb A1c (Clinic) 5.9 % (4.0-6.0) 06/23/24 09:58 Coding Level of Care Code Est Pt Level 3 (37683) Diagnoses Essential hypertension I10 BMI 45.0-49.9, adult Z68.42 Pre-diabetes R73.03 Screening for colon cancer Z12.11 Additional Codes PHQ-9 - 61683 - PHQ-9 Billing: Yes ([id number]) Assessment & Plan Assessment & Plan (1) Essential hypertension: Code(s): I10 - Essential (primary) hypertension Category: Medical Plan: Blood?pressure?is?well?controlled.??Goal?is?less?than?140/90 Continue?current?medications (2) BMI 45.0-49.9, adult: Code(s): Z68.42 - Body mass index [BMI] 45.0-49.9, adult Category: Medical Plan: Patient?has?been?working?weight?loss?with?semaglutide. This?was?discontin ued?by?his?insurance?a?couple?months?ago.??He?is?awaiting?prior?authorization?ag ain Has?gained?back?about?10?lb. 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 (3) Pre-diabetes: Code(s): R73.03 - Prediabetes Category: Medical Plan: A1c?has?climbed?to?5.9%. Had?been?lower?but?patient?has?been?off?of?semaglutide?which?he?is?taking?for?we ight?loss Continue?working?at?a?diet?lower?in?sugars?and?starches. Continue exercise (4) Screening for colon cancer: Code(s): Z12.11 - Encounter for screening for malignant neoplasm of colon Category: Medical Plan: Recent?colonoscopy?with??Armando?showed?polyps?in?who?follow-up?in?5?years Orders: Orders AMB Hemoglobin A1c Today R73.03 - Prediabetes
[2024-06-23 09:51] VITALS: BP 120/60; PULSE 76; RESP 16; TEMP 36.8; O2SAT 93; BMI 47.5
== END 2024-06-23 10:26 | disposition home or self-care (01) ==
LOC: HO.HMCFM 09:31
PROVIDERS: PCP Family Medicine; Visit Provider Family Medicine
DX: I10 Essential (primary) hypertension (principal); Z68.42 Body mass index [BMI] 45.0-49.9, adult; R73.03 Prediabetes; Z12.11 Encounter for screening for malignant neoplasm of colon

== ENCOUNTER → 2024-06-23 09:30 | Outpatient (BNVA) | payer OTHER, SELFPAY | PROVIDERS: PCP Family Medicine; Visit Provider Family Medicine | DX: R73.03 Prediabetes (principal); I10 Essential (primary) hypertension; Z79.899 Other long term (current) drug therapy | CPT/HCPCS: 83036; 96127 ==

== ENCOUNTER 2024-08-21 09:22 | Outpatient (REF) | payer OTHER, SELFPAY ==
[2024-08-21 09:34] LABS: MANUAL DIFF FLAG NO
--- OUTSIDE RECORDS SUMMARY | 2024-08-21 09:45 | XMS_ITS | Patient Health Record ---
Author Organization [facility] Address [address] [place] [address] Care Team Providers Care Mica Miner Name Role Phone Donnie Butterfield Primary Care Provider Unavailab Micha Orosco Unavailable [phone] Allergies No Known Allergies Results Component Value Reference Range Notes Pathology (Not yet reviewed by provider) Interpretation: Performing Lab:[facility], [address] [place] [id number] Notes/Report: Name: Brandi Jacob Age/Sex: 64/M : 1960 Unit#: [id number] Attend Dr: Micha Roberts MD Re04/18/24 Status : [facility] Location: [facility] Disch: SPEC : [id number] RECD: 04/18/24 STATUS: JIMMY ELLIS NUM: [id number] KERRI: 04/18/[address] [facility] [address]: Micha Roberts MD ENTERED: 04/18/24 57 SP TYPE: Surgical OTHR DR: Donnie Butterfield MD ORDERED: HE Stain/3, Gross Micro L4 Diagnosis Colon, transverse, p olyp: Tubular adenoma; negative for high-grade dysplasia and carcinoma. Clinical History Pre-Op Dx: Encounter for screening for malignant neoplasm of colon Post-Op Dx: Colon po lyp. diverticulosis, hemorrhoids Microscopic Description Microscopic sections reviewed. Material Received Transverse colon polyp Gross Description Received in formalin labeled ?transverse colon polyp? is a fragment of lange-white soft tissue measuring 0.5 cm in greatest dimension which is wrapped in lens paper and entirely submitted for microscopic exam ination, 1 piece in cassette [facility] Copies To: Donnie Butterfield MD [facility] [address] [place] [id number] Micha Roberts MD [facility] [address] [place] [address] [address] [place], [place] [id number] Signed (si gnature on file) Rae Ashia 04/21/24 1026 END OF REPORT Reason For Referral No Information Medications Medication SIG (Take, Route, Frequency, Duration) Notes [...] MOUTH EVERY DAY Oral for 90 Active Immunizations Vaccine Route Administration Date Status Comme nts Influenza Unknown 01/01/2018 Administered Problems Problem Type SNOMED Code ICD Code Onset Dates Problem Status W/U Status Risk Notes Problem [id number] Encounter for screening for malignant neoplasm of colon (Z12.11) Active confirmed Problem 784635918 History of adenomatous polyp of colon (Z86.010) Active confirmed Problem Encounter for other preprocedural examination (Z01.818) Active confirmed Problem 55164221 Hypertension, unspecified type (I10) Active confirmed Vital Signs Blood pressure diastolic 00 mm Hg 11/30/2023 Height 74 in 11/30/2023 Blood pressure systolic 00 mm Hg 11/30/2023 Weight 366 lbs 11/30/2023 BMI 46.99 kg/m2 11/30/2023 Encounters Encounter Location Date Provider Diagnosis [facility] [address] [place], [place] [id number] 04/18/2024 Micha Roberts Colon cancer screeni ng Z12.11 ; Personal history of adenomatous and serrated colon polyps Z86.0101 ; 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 and Diverticulosis of colon K57.30 [facility] [address] [place] [address] 11/30/2023 Micha Roberts History of adenomato us polyp of colon Z86.010 ; Encounter for other preprocedural examination Z01.818 and Encounter for screening for malignant neoplasm of colon Z12.11 Assessments Encounter Date Diagnosis (ICD Code) Assessment Notes Treatment Notes Treatment Clinical Notes Section Notes 04/18/2024 Colon cancer screening (ICD-10 - Z12.11) 04/18/2024 Personal history of adenomatous and serrated colon polyps (ICD-10 - Z86.0101) 11/30/2023 History of adenomatous polyp of colon (ICD-10 - Z86.010) Overall, Brandi appears quite well. Given his history of a tubular adenoma the colon, his last colonoscopy being over 5 years ago, and his age, I did recommend a followup colonoscopy for further screening purposes. We did review the rationale for this in regard to colon cancer prevention. Full consent was obtained for this, including risks of bleeding and perforation. The procedure will be done with monitored anesthesia care. He was given the below instructions regarding adjustment of his medications for the procedure. Brandi and his were comfortable with this plan. Thank you again for allowing me to participate in Brandi's care. I shall continue to keep you advised of his progress. 11/30/2023 Encounter for other preprocedural examination (ICD-10 - Z01.818) Overall, Brandi appears quite well. Given his history of a tubular adenoma the colon, his last colonoscopy being over 5 years ago, and his age, I did recommend a followup colonoscopy for further screening purposes. We did review the rationale for this in regard to colon cancer prevention. Full consent was obtained for this, including risks of bleeding and perforation. The procedure will be done with monitored anesthesia care. He was given the below instructions regarding adjustment of his medications for the procedure. Brandi and his were comfortable with this plan. Thank you again for allowing me to participate in Brandi's care. I shall continue to keep you advised of his progress. 04/18/2024 Adenoma of transverse colon (ICD-10 - D12.3) 11/30/2023 Encounter for screening for malignant neoplasm of colon (ICD-10 - Z12.11) Do not take the Wegovy injection for at least 7 days before the colonoscopy Do not take the Chlorthalidone the day before nor on the day of the colonoscopy Overall, Brandi appears quite well. Given his history of a tubular adenoma the colon, his last colonoscopy being over 5 years ago, and his age, I did recommend a followup colonoscopy for further screening purposes. We did review the rationale for this in regard to colon cancer prevention. Full consent was obtained for this, including risks of bleeding and perforation. The procedure will be done with monitored anesthesia care. He was given the below instructions regarding adjustment of his medications for the procedure. Brandi and his were comfortable with this plan. Thank you again for allowing me to participate in Brandi's care. I shall continue to keep you advised of his progress. 04/18/2024 Diverticulosis of colon (ICD-10 - K57.30) Plan Of Treatment Pending Test Test Name Order Date Pathology 04/18/2024 Future Test Test Name Order Date COLONOSCOPY 01/08/2013 COLONOSCOPY 07/03/2018 COLONOSCOPY 11/30/2023 Insurance Providers Payer Name Payer Address Payer Phone Subscriber Number Group Number Insured Name Patient Relationship to Insured Coverage Start Date Coverage End Date [employer] ([employer]) [address] [place] [address] [phone] [id number] BRANDI JACOB Self - patient is the insured Medical (General) History Medical History History ICD Code Hypertension Denies [place],DM,CVA,renal disease On doxycycline for gingivitis December Asthma Colonoscopy 03/2013-small tubular adenoma removed Obesity--on Wegovy-started 07/2023--has l ost 10 pounds as of the 11/2023 OV Negative screening colonoscopy 08/2018 Surgical History Surgery Date(Month/Year) Cholecystectomy--at [facility] [place]
[2024-08-21 10:16] LABS: Basophils Absolute Auto 0.1 X10*3/uL (0.0-0.2); Basophils Percent Auto 0.9 % (0-2); Eosinophils Absolute Auto 0.3 X10*3/uL (0.0-0.4); Eosinophils Percent Auto 4.4 % (0-4); Hematocrit 41.9 % (42.0-52.0); Hemoglobin 13.9 g/dl (14.0-18.0); Imm Gran Abs Auto 0.01 X10*3/uL (0.00-0.03); Imm Gran Pct Auto 0.2 % (0.0-0.4); Lymphocytes Absolute Auto 1.2 X10*3/uL (1.2-4.9); Lymphocytes Percent Auto 18.6 % (20-40); Mean Corpuscular HGB Conc 33.2 g/dl (31.0-36.0); Mean Corpuscular Hemoglobin 30.1 pg (27.0-33.0); Mean Corpuscular Volume 90.7 fL (80.0-98.0); Mean Platelet Volume 9.9 fL (9.4-12.4); Monocytes Absolute Auto 0.5 X10*3/uL (0.1-1.2); Neutrophils Absolute Auto 4.6 x10*3/uL (2.0-8.3); Neutrophils Percent Auto 68.9 % (45-73); Platelet Count 260 X10*3/uL (160-400); Red Blood Count 4.62 X10*6/uL (4.60-5.80); Red Cell Distribution Width 12.4 % (11.0-16.0); White Blood Count 6.6 X10*3/uL (4.8-10.8)
[2024-08-21 10:57] LABS: Appearance Urine Clear; Color Urine Yellow; Glucose Urine UA Negative (Negative); Leukocyte Esterase Urine Negative (Negative); Nitrite Urine Negative (Negative); PH 5.5 (5.0-9.0); Urine Blood Negative (Negative); Urine Ketones Negative (Negative); Urine Protein Negative (Neg-Trace)
[2024-08-21 11:00] LABS: Alanine Aminotransferase 26 U/L (0-40); Albumin Level 4.3 g/dL (3.5-5.0); Alkaline Phosphatase 78 U/L (39-117); Anion Gap 11 (12-20); Aspartate Amino Transferase 20 U/L (5-37); Blood Urea Nitrogen 17 mg/dL (9-16); Calcium 9.5 mg/dL (8.4-10.2); Carbon Dioxide 31 mmol/L (22-29); Chloride 102 mmol/L (96-108); Cholesterol 122 mg/dL (<200); Estimated Glomerular Filt Rate > 60; Glucose Fasting 107 mg/dL (60-99); HDL Cholesterol 39 mg/dL (>40); LDL Cholesterol Calculated 71 mg/dL (<100); Potassium 3.6 mmol/L (3.3-5.1); Sodium 140 mmol/L (135-145); Total Protein 6.9 g/dL (6.5-8.0); Triglycerides 64 mg/dL (<150)
[2024-08-21 11:04] LABS: TSH reflex Free T4 1.02 uIU/mL (0.32-4.0)
[2024-08-21 11:27] LABS: Creatinine Urine 121.01 mg/dL
== END 2024-08-21 09:23 | disposition home or self-care (01) ==
LOC: HO.LAB 09:22
PROVIDERS: PCP Family Medicine; Visit Provider Family Medicine
DX: Z00.00 Encounter for general adult medical examination without abnormal findings (principal); I10 Essential (primary) hypertension
CPT/HCPCS: 36415; 80053; 80061; 81003; 82043; 82570; 84443; 85025

== ENCOUNTER 2024-08-25 09:49 | Outpatient (AMB) | payer OTHER, SELFPAY ==
--- NOTE | 2024-08-25 09:54 | MHC.PC.OV ---
Vital Signs 08/25/24 09:58 Height 6 ft 2 in Weight 351 lb 4 oz BMI 45.1 BP 128/64 Blood Pressure Location Lt brachial Position Sitting Respiration 16 Pulse 72 Pulse Source Pulse Oximeter Temp 97.8 F Temp Source Oral Pulse Oximetry (%) 95 Oxygen Delivery Method Room Air Intake Visit Reasons: CPE with f/ulabs and health maint.(Isa baldwin Dr.)) Intake Note: patient is scheduled for follow-up for labs and health maint. Patient has no concern other than know what his lab result are. Allergies Seasonal Allergies Allergy (Verified 08/25/24 09:55) sneezing, runny nose Medication List - Last Reconciled 08/25/24 by Donnie Butterfield MD albuterol sulfate 90 mcg/actuation 2 puffs PO Q4H PRN 90 days amlodipine 5 mg PO DAILY 90 days atorvastatin 20 mg PO DAILY 90 days budesonide 180 mcg/actuation (Pulmicort Flexhaler) 1 inh inhalation BID 3 months chlorthalidone 50 mg PO QAM lisinopril 20 mg PO DAILY 90 days montelukast 10 mg PO DAILY 90 days semaglutide (weight loss) 2.4 mg (0.75 mL) subcut QWEEK 28 days Tobacco use date assessed: 08/25/24 Dental Screening Dental Screen Date: 08/25/24 Did you have a dental visit in the last 12 months?: Yes Did you have a dental problem in the last 6 months where you did not have access to dental care?: No Was dental information given to patient?: No HPI CPE with f/ulabs and health maint.(Isa baldwin Dr.)) HPI Details 64 y/o male presents for a CPE with f/u labs and health maintenance. Labs drawn 08/21/24. Reviewed labs with pt. Mild anemia. Hgb 13.9. Hct 41.9. Fasting glucose 107. Triglycerides 64. TC 122. LDL 71. HDL low at 39. He is on artovastatin 20mg daily. TSH 1.02. Blood pressure today 128/64, 72p. He is on amlodipine 5mg, lisinopril 20mg daily. Pt notes he tries to exercise. HPI Comments History of Present Illness Details Documentation assistance for Donnie Butterfield MD, was provided by Tyson Gomez, Volleyball Assembler on 08/25/2024 at 10:06 AM EST. I, Dr. Butterfield, have read, observed, and verified documentation. ? 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 Mother Cancer Brother Cancer of prostate Social History Housing: House Alcohol intake: current Alcohol intake frequency: holidays/special occasions only Patient Tobacco Use Status: Never used Tobacco e-Cigarette/Vaping Use: Never Used Second Hand Smoke Exposure: No service: No Current occupational status: employed and retired Current occupational exposures/hazards: No Cognitive needs: No Hearing needs: No Vision needs: No Questionnaire Thrive Questionnaire Date Thrive assessed: 06/23/24 I am a: Patient What is your living situation today?: I have a steady place to live Within the past 12 months, did the food you bought not last and you didn't have the money to get more?: Never true Within the past 12 months, did you worry whether your food would run out before you got money to buy more?: Never true Do you have trouble paying for medicines?: No Do you have trouble getting transportation to medical appointments?: No Do you have trouble paying your heating and electricity bill?: No Do you have trouble taking care of your child, family member or friend?: No Do you have trouble with day-to-day activities such as bathing, preparing meals, shopping, managing finances, etc.?: No Are you currently unemployed and looking for a job?: No Are you interested in more education?: No Please select the resources that you would like help with: None Currently or been in a relationship where the following occur: No concerns reported THRIVE Score: 0 WIL-7 AMB Questionnaire WIL-7 Date WIL - 7 assessed: 04/19/23 Source: Developed by Drs. Micha Mendoza, Tanja B.W. Bubba Velasquez and colleagues, with an educational lynne from [employer]. Review of Systems Const Denies chills, Denies fatigue, Denies fever(s), Denies headache(s) and Denies weakness Eyes Denies change in vision ENT Denies dizziness, Denies headache(s), Denies hearing loss, Denies nasal congestion, Denies sinus pain, Denies sinus pressure and Denies sore throat Card Denies chest pain, Denies lightheadedness, Denies dyspnea and Denies other (palpitations) Resp Denies cough, Denies dyspnea and Denies wheezing GI Denies abdominal pain, Denies melena, Denies hematochezia, Denies change in bowel habits, Denies dyspepsia and Denies nausea Denies hematuria and Denies dysuria Musc Denies abnormal gait, Denies myalgias, Denies arthralgias, Denies numbness and Denies tingling Skin/Breast Denies rash, Denies unusual bruising and Denies wounds Neuro Denies abnormal gait, Denies dizziness, Denies headache(s), Denies memory loss, Denies numbness, Denies Sensory deficit (Neuro), Denies tingling and Denies weakness Psych Denies anxiety, Denies depression and Denies memory loss Endo Denies cold intolerance, Denies fatigue, Denies heat intolerance, Denies polydipsia and Denies polyuria Rocael/Lymph Denies easy bleeding and Denies easy bruising Aller/Immun Denies wheezing Physical exam (Primary Care) Vital Signs: Last Vital Signs Temp 97.8 F 08/25/24 09:58 Pulse 72 08/25/24 09:58 Resp 16 08/25/24 09:58 BP 128/64 08/25/24 09:58 Pulse Ox 95 08/25/24 09:58 Oxygen Delivery Method Room Air 08/25/24 09:58 BMI result Body Mass Index 45.1 Tobacco/Smoking Status: Tobacco use Status Tobacco use date assessed 08/25/24 08/25/24 10:02 Patient Tobacco Use Status Never used Tobacco 08/25/24 10:02 e-Cigarette/Vaping Use Never Used 08/25/24 10:02 Thrive Assessment: Date of Thrive Assessment Date Thrive assessed 06/23/24 08/25/24 10:02 Currently or been in a relationship where the following occur: No concerns reported Const General: no acute distress, well developed, alert and awake Nutritional Appearance: well nourished Orientation/consciousness: patient oriented x3 [facility] Head: Yes normocephalic and Yes atraumatic Ears: hearing grossly normal bilaterally and TM's normal bilaterally General nose exam: Normal external nose present and Normal nares present Mouth: Normal oral and palatal mucosa present and moist mucous membranes Teeth and gingiva: dentition normal Throat: Yes posterior oropharynx normal Eyes General: appearance normal, both eyes and all related structures Pupils: Equal, round and reactive pupils present and Pupil accommodation reflex normal EOM: EOMs intact bilaterally Neck Neck: Yes normal visual inspection, Yes no lymphadenopathy and Yes trachea midline Thyroid: Thyroid normal Carotids: no bruits Lymphatic: no lymphadenopathy noted Chest Chest palpation & inspection: normal inspection of the chest Resp Effort & Inspection: normal respiratory effort Auscultation: clear to auscultation bilaterally Cardio Rate: regular rate Rhythm: regular rhythm Heart sounds: S1 normal heart sound present, S2 normal heart sound present, no gallops, no murmurs and no rubs Bruits: no abdominal aortic bruits and no carotid bruits GI Palpation (GI): No Abdominal aortic bruit present, Soft to palpation, nontender, No hepatosplenomegaly present and No Rebound tenderness present Auscultation: normal bowel sounds General: Yes no CVA tenderness Back/Spine/Pelvis Back: no CVA tenderness Cervical Spine: cervical ROM normal and No Cervical spine tenderness Thoracic/Lumbar Spine: thoraco-lumbar ROM normal, No pain with thoraco-lumbar ROM, No thoracic spinal tenderness and No lumbar spinal tenderness Skin Lesions: no lesions Rashes: no rashes Trauma: no lacerations or abrasions Wounds: no wounds Nails: normal Neuro General: patient oriented x3 Cranial nerves: Yes Equal, round and reactive pupils present Cognition (Neuro): normal cognition Gait exam (Neuro): Normal gait present Motor exam (neuro): 5/5 motor strength present throughout Sensory Exam: No Sensory deficit (Neuro) Deep tendon reflexes (DTR's): Right patellar reflex intensity grade: 2+ and Left patellar reflex intensity grade: 2+ Extrem General: Yes normal to inspection and No edema Psych Appearance: grossly normal Affect: normal affect Attitude: cooperative Thought process: Normal thought process present Coding Level of Care Code Est Pt Level 3 (45836) Est Pt Prev Care 40-64y(32687) Diagnoses Adult general medical exam Z00.00 Essential hypertension I10 Pre-diabetes R73.03 BMI 45.0-49.9, adult Z68.42 Hyperlipidemia E78.5 Screening for colon cancer Z12.11 Screening for prostate cancer Z12.5 Assessment & Plan Assessment & Plan (1) Adult general medical exam: Code(s): Z00.00 - Encounter for general adult medical examination without abnormal findings Category: Medical Plan: 64-year-old?male?presents?for?complete?physical?exam Encouraged?healthy?diet?with?active?lifestyle?and?plenty?of?exercise (2) Essential hypertension: Code(s): I10 - Essential (primary) hypertension Category: Medical Plan: Blood?pressure?is?controlled.??Goal?is?less?than?140/90 He?notes?some?lower?blood?pressures?at?home?but?no?symptoms?such?as?dizziness?or?weakness. Hydrate?well?and?continue?current?medication?regimen.??He?will?let?me?know?if?blood?pressure?is?continue?to?be?low?when?he?has?implemented?better?hydration. (3) Pre-diabetes: Code(s): R73.03 - Prediabetes Category: Medical Plan: A1c?was?5.9%?at?last?check?a?couple?of?months?ago. Since?then?he?has?lost?almost?20?lb Continue?diet?low?in?sugars?and?starches.??He?is?taking semaglutide?for?weight?loss?again. Will?recheck?with?next?lab?work (4) BMI 45.0-49.9, adult: Code(s): Z68.42 - Body mass index [BMI] 45.0-49.9, adult Category: Medical Plan: As?above?he?is?back?on?semaglutide?for?weight?loss?in?his?lost?about 20?lb?since?his?last?visit Continue?this?medication?and?work?on?a?healthy?diet Encouraged?exercise (5) Hyperlipidemia: Code(s): E78.5 - Hyperlipidemia, unspecified Category: Medical Plan: Lipids?are?well?controlled?on?atorvastatin Continue?current?medication (6) Screening for colon cancer: Code(s): Z12.11 - Encounter for screening for malignant neoplasm of colon Category: Medical Plan: Recent?colonoscopy?with??Armando?showed?polyps?in?who?follow-up?in?5?years (7) Screening for prostate cancer: Code(s): Z12.5 - Encounter for screening for malignant neoplasm of prostate Category: Medical Plan: PSA?was?within?normal?range?at?last?check He?has?an?upcoming?appointment?with? Orders: Orders Comprehensive Sunol. Panel Fast Today E78.5 - Hyperlipidemia, unspecified, Z00.00 - Encounter for general adult medical examination without abnormal findings Lipid Panel Today E78.5 - Hyperlipidemia, unspecified, Z00.00 - Encounter for general adult medical examination without abnormal findings Hemoglobin A1c Today R73.01 - Impaired fasting glucose, R73.03 - Prediabetes Microalbumin, Random (w Creat) Today I10 - Essential (primary) hypertension, R73.03 - Prediabetes Complete Blood Count Auto Diff Today Z00.00 - Encounter for general adult medical examination without abnormal findings
[2024-08-25 09:58] VITALS: BP 128/64; PULSE 72; RESP 16; TEMP 36.6; O2SAT 95; BMI 45.1
--- OUTSIDE RECORDS SUMMARY | 2024-08-25 10:36 | XMS_ITS | Patient Health Record ---
Author Organization [facility] Address [address] [place] [address] Care Team Providers Care Web Operations Manager Name Role Phone Donnie Butterfield Primary Care Provider Unavailab Micha Orosco Unavailable [phone] Allergies No Known Allergies Results Component Value Reference Range Notes Pathology (Not yet reviewed by provider) Interpretation: Performing Lab:[facility] [place], [address] [place] [id number] Notes/Report: Name: Brandi Jacob Age/Sex: 64/M : 1960 Unit#: [id number] Attend Dr: Micha Roberts MD Re04/18/24 Status : [facility] Location: [facility] Disch: SPEC : [id number] RECD: 04/18/24 STATUS: JIMMY ELLIS NUM: [id number] KERRI: 04/18/[address] [facility] [address]: Micha Roberts MD ENTERED: 04/18/24 [...] exam ination, 1 piece in cassette [facility]. [facility] Copies To: Donnie Butterfield MD [facility] [address] [place] [id number] Micha Roberts MD [facility] [address] [place] [address] [address] [place], [place] [id number] Signed (si gnature on file) Rae Ashia [...] Problem Status W/U Status Risk Notes Problem 304766543 Encounter for screening for malignant neoplasm of colon (Z12.11) Active confirmed Problem 984831583 History of adenomatous polyp of colon (Z86.010) Active confirmed Problem Pre-procedure evaluation check (511883914) Encounter for other preprocedural examination (Z01.818) Active confirmed Problem 31589257 Hypertension, unspecified type (I10) Active confirmed Vital Signs Blood pressure diastolic 00 mm Hg 11/30/2023 Height 74 in 11/30/2023 Blood pressure systolic 00 mm Hg 11/30/2023 Weight 366 lbs 11/30/2023 BMI 46.99 kg/m2 11/30/2023 Encounters Encounter Location Date Provider Diagnosis [facility] Outpatient [address] [place] [phone] 04/18/2024 Micha Roberts Colon cancer screeni ng Z12.11 ; Personal history of adenomatous and serrated colon polyps Z86.0101 ; 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 and Diverticulosis of colon K57.30 [facility] [address] [place] [address] 11/30/2023 Micha Roberts History of adenomato us [...] Insured Coverage Start Date Coverage End Date [employer] ([employer]) [address] [place] [id number] BRANDI JACOB Self - patient is the insured Medical (General) History Medical History History ICD Code Hypertension Denies [place],DM,CVA,renal disease On doxycycline for gingivitis December Asthma Colonoscopy 03/2013-small tubular adenoma removed Obesity--on Wegovy-started 07/2023--has l ost 10 pounds as of the 11/2023 OV Negative screening colonoscopy 08/2018 Surgical History Surgery Date(Month/Year) Cholecystectomy--at [facility] 2019
== END 2024-08-25 10:37 | disposition home or self-care (01) ==
LOC: HO.HMCFM 09:50
PROVIDERS: PCP Family Medicine; Visit Provider Family Medicine
DX: Z00.00 Encounter for general adult medical examination without abnormal findings (principal); I10 Essential (primary) hypertension; Z68.42 Body mass index [BMI] 45.0-49.9, adult; R73.03 Prediabetes; E78.5 Hyperlipidemia, unspecified; Z12.11 Encounter for screening for malignant neoplasm of colon; Z12.5 Encounter for screening for malignant neoplasm of prostate

== ENCOUNTER → 2024-08-25 09:49 | Outpatient (BNVA) | payer OTHER, SELFPAY | PROVIDERS: PCP Family Medicine; Visit Provider Family Medicine ==

== ENCOUNTER 2024-12-02 08:51 | Outpatient (REF) | payer OTHER, SELFPAY ==
--- OUTSIDE RECORDS SUMMARY | 2024-04-18 03:30 | XMS_ITS ---
Author Organization [facility] Address [address] [place] [phone] Care Team Providers Care District Traffic Chief Name Role Phone Donnie Butterfield Primary Care Provider UnavailMicha Salazar [phone] REASON FOR VISIT colon screening Encounters Encounter Location Date Provider Diagnosis [facility] Outpatient [address] [place] [phone] 04/18/2024 Micha Roberts Colon cancer scree johana [...] Notes * BRANDI JACOBDOB:1960 (64 yo M)Acc No.[id number]:04/18/2024 COLON WITH MAC Patient: BRANDI BARILLAS Provider: Mac Roberts MD :1960 A ge:64 Y S ex:Male Date:04/18/2024 Address:[address] [place] [address] Pcp:Donnie Butterfield Subjective: * Chief Complaints: * [...] 04/18/2024 Generated for Braydon olsen/Fuentes/Shreeitting on: 0 12/02/2024 10:01 AM EDT
[2024-12-02 09:08] LABS: MANUAL DIFF FLAG NO
[2024-12-02 09:54] LABS: Hematocrit 44.4 % (42.0-52.0); Hemoglobin 14.4 g/dl (14.0-18.0); Imm Gran Abs Auto 0.03 X10*3/uL (0.00-0.03); Imm Gran Pct Auto 0.4 % (0.0-0.4); Lymphocytes Absolute Auto 1.6 X10*3/uL (1.2-4.9); Mean Corpuscular HGB Conc 32.4 g/dl (31.0-36.0); Mean Corpuscular Hemoglobin 29.8 pg (27.0-33.0); Mean Corpuscular Volume 91.7 fL (80.0-98.0); NRBC Abs Auto 0.000 X10*3/uL (0.0-0.012); NRBC Pct Auto 0.0 /100WBC (0.0-0.2); Platelet Count 259 X10*3/uL (160-400); Red Blood Count 4.84 X10*6/uL (4.60-5.80); White Blood Count 8.3 X10*3/uL (4.8-10.8)
--- OUTSIDE RECORDS SUMMARY | 2024-12-02 10:01 | XMS_ITS | Patient Health Record ---
Author Organization [facility] Address [address] [place] [address] Care Team Providers Care Preparation Plant Repairer Name Role Phone Donnie Butterfield Primary Care Provider UnavailMicha Salazar [phone] Allergies No Known Allergies Results Component Value Reference Range Notes Pathology (Not yet reviewed by provider) Interpretation: Performing Lab:[facility], [address] [place] [phone] Notes/Report: Reason For Referral No Information Medications Medication [...] Problem Status W/U Status Risk Notes Problem 061225315 Encounter for screening for malignant neoplasm of colon (Z12.11) Active confirmed Problem 324060370 History of adenomatous polyp of colon (Z86.010) Active confirmed Problem Pre-procedure evaluation check (294083459) Encounter for other preprocedural examination (Z01.818) Active confirmed Problem 05699880 Hypertension, unspecified type (I10) Active confirmed Encounters Encounter Location Date Provider Diagnosis [facility] Outpatient [address] [place] [phone] 04/18/2024 Micha Roberts Colon cancer nilese johana Z12.11 ; Personal history of adenomatous [...] Insured Coverage Start Date Coverage End Date [facility] Insurance ([employer]) [address] [place] [address] [id number] BRANDI JACOB Self - patient is the insured Medical (General) History Medical History History ICD Code Hypertension Denies [place],DM,CVA,renal disease On doxycycline for gingivitis December Asthma Colonoscopy 03/2013-small tubular adenoma removed Obesity--on Wegovy-started 07/2023--has l ost 10 pounds as of the 11/2023 OV Negative screening colonoscopy 08/2018 Surgical History Surgery Date(Month/Year) Cholecystectomy--at [facility] 2019
--- OUTSIDE RECORDS SUMMARY | 2024-12-02 10:01 | XMS_ITS | Clinical Summary ---
Author Organization [facility] Address [address] [phone] Phone Care Team Providers Care Environmental Protection Officer Name Role Phone Unknown, Unknown MD Primary Care Provider Unavai lable Allergies No known active allergies Medications lisinopril (PRINIVIL,ZESTRI L) 10 MG tablet Take 10 mg by mouth daily. Active hydroCHLOROthiaz aristeo (HYDRODIURIL) 25 MG tablet Take 25 mg by mouth daily. Active doxycycline hyclate 20 MG tablet Take 20 mg by mouth 2 (two) times a day. Active cyclobenzaprine (FLEXERIL) 10 MG tablet Take 10 mg by mouth 3 (three) times a day as needed for muscle spasms. Active Social History Tobacco Use Types Packs/Day Years Used Date Smoking Tobacco: Never Smokeless Tobacco: Never Education Answer Date Recorded Are you interested in more education? Not on chris e 07/21/2022 Are you concerned about learning? Not on file 07/21/2022 No 07/21/2022 No 07/21/2022 Digital Access Answer Date Recorded No 08/19/2022 No 08/19/2022 No 08/19/2022 Reliable internet access at home? Not on file 08/19/2022 Device with a working camera? Not on file Sex and Gender Information Value Date Recorded Sex Assigned at Not on file Legal Sex Male 9:27 AM EDT Gender Identity Not on file Sexual Orientation Not on file Last Filed Vital Signs Vital Sign Reading Time Taken Comments Blood Pressure - - Pulse - - Temperature - - Respiratory Rate - - Oxygen Saturation - - Inhaled Oxygen Concentration - - Weight 173.3 kg (382 lb) 08/01/2017 10:31 AM EDT Height 186.7 cm (6' 1.5 ) 08/01/2017 10:31 AM ED T Body Mass Index 49.72 08/01/2017 10:31 AM EDT Plan of Treatment Health Maintenance Due Date Last Done Comments CREATININE LEVEL 1960 LIPID PANEL 1960 POTASSIUM LEVEL 1960 DEPRESSION SCREENING 1973 HEPATITIS C SCREENING 1979 HIV ONE-TIME SCREENING (18-65 YEARS) 1979 COLOGUARD 2006 COLONOSCOPY 2006 COLORECTAL CANCER SCREENING 2006 FIT TEST 2006 FOBT 2006 SIGMOIDOSCOPY 2006 VIRTUAL COLONOSCOPY 2006 ZOSTER VACCINES (1 of 2) 2011 PNEUMOCOCCAL VACCINES (50+ years) (2 of 2 - PCV) 09/22/2019 09/21/2018 INFLUENZA VACCINE (#1) 2024 9, 03/01/2018, 01/16/2017, Additional history exists COVID-19 VACCINE (2 - 2024- season) 2024 06/24/2020 Adult Td,Tdap Booster 10/30/2027 10/29/2017 RSV VACCINE (1 - 1-dose 75+ series) 2036 SMOKING STATUS SCREENING (Once After 26 Yrs) Completed 08/01/2017 HEPATITIS A VACCINES Aged Out No long er eligible based on patient's age to complete this topic HIB VACCINES Aged Out No longer eligi ble based on patient's age to complete this topic MENINGOCOCCAL VACCINES (ACWY) Aged Out No longer eligible based on patient's age to complete this topic MENINGOCOCCAL VACCINES (B) Aged Out N o longer eligible based on patient's age to complete this topic Medical Devices Not on file Insurance [facility] Care Teams Environmental Protection Officer Relationship Specialty Start Date End Date Unknown, Unknown, PCP - General 06/22/17 Additional Source Comments The information contained in this document represents components of the legal health record. It is not the complete legal health record.[facility]
[2024-12-02 10:09] LABS: Hemoglobin A1C 148.9720 umol/L; Total Hemoglobin (HGBA1C) 3810.0245 umol/L
[2024-12-02 10:40] LABS: Microalbum/Creatinine Ratio Ur 4.5 ug/mg cr (<30)
[2024-12-02 11:05] LABS: Alanine Aminotransferase 24 U/L (0-40); Albumin Level 4.3 g/dL (3.5-5.0); Alkaline Phosphatase 85 U/L (39-117); Anion Gap 12 (12-20); Aspartate Amino Transferase 18 U/L (5-37); Blood Urea Nitrogen 24 mg/dL (9-16); Calcium 9.0 mg/dL (8.4-10.2); Carbon Dioxide 30 mmol/L (22-29); Chloride 101 mmol/L (96-108); Cholesterol 130 mg/dL (<200); Estimated Glomerular Filt Rate > 60; HDL Cholesterol 49 mg/dL (>40); Potassium 3.7 mmol/L (3.3-5.1); Sodium 139 mmol/L (135-145); Total Protein 7.0 g/dL (6.5-8.0); Triglycerides 57 mg/dL (<150)
== END 2024-12-02 08:52 | disposition home or self-care (01) ==
LOC: HO.LAB 08:51
PROVIDERS: PCP Family Medicine; Visit Provider Family Medicine
DX: Z00.00 Encounter for general adult medical examination without abnormal findings (principal); E78.5 Hyperlipidemia, unspecified; I10 Essential (primary) hypertension; R73.03 Prediabetes
CPT/HCPCS: 36415; 80053; 80061; 82043; 82570; 83036; 85025

== ENCOUNTER 2024-12-05 09:23 | Outpatient (AMB) | payer OTHER, SELFPAY ==
--- OUTSIDE RECORDS SUMMARY | 2024-04-18 03:30 | XMS_ITS ---
Author Organization [facility] Address [address] [place] [address] Care Team Providers Care Product Assembler Name Role Phone Donnie Butterfield Primary Care Provider UnavailMicha Salazar [phone] REASON FOR VISIT colon screening Encounters Encounter Location Date Provider Diagnosis [facility] Outpatient [address] [place] [phone] 04/18/2024 Micha Roberts Colon cancer scree johana [...] Notes * BRANDI JACOBDOB:1960 (64 yo M)Acc No.[id number]:04/18/2024 COLON WITH MAC Patient: BRANDI BARILLAS Provider: Mac Roberts MD :1960 A ge:64 Y S ex:Male Date:04/18/2024 Address:[address] [place] [address] Pcp:Donnie Butterfield Subjective: * Chief Complaints: * [...] 0 04/18/2024 Generated for Braydon olsen/Fuentes/Shreeitting on: 0 12/05/2024 10:27 AM EDT
--- NOTE | 2024-12-05 09:30 | A.OFFPC_ITS ---
Vital Signs 12/05/24 09:34 Height 6 ft 2 in Weight 346 lb BMI 44.4 BP 122/70 Blood Pressure Location Rt brachial Position Sitting Respiration 16 Pulse 73 Pulse Source Pulse Oximeter Temp 97.9 F Temp Source Temporal Artery Scan Pulse Oximetry (%) 95 Oxygen Delivery Method Room Air Intake Visit Reasons: f/u mild anemia, labs Intake Note: Bright presents in the office today for a follow up to his anemia and other lab results. Allergies Seasonal Allergies Allergy (Verified 12/05/24 09:32) sneezing, runny nose Medication List - Last Reconciled 12/05/24 by Donnie Butterfield MD albuterol sulfate 90 mcg/actuation 2 puffs PO Q4H PRN 90 days amlodipine 5 mg PO DAILY 90 days atorvastatin 20 mg PO DAILY 90 days budesonide 180 mcg/actuation (Pulmicort Flexhaler) 1 inh inhalation BID 3 months chlorthalidone 50 mg PO QAM doxycycline hyclate 20 mg PO BID lisinopril 20 mg PO DAILY 90 days montelukast 10 mg PO DAILY 90 days semaglutide (weight loss) 2.4 mg (0.75 mL) subcut QWEEK 28 days Tobacco use date assessed: 12/05/24 Dental Screening Dental Screen Date: 12/05/24 Did you have a dental visit in the last 12 months?: Yes Did you have a dental problem in the last 6 months where you did not have access to dental care?: No Was dental information given to patient?: Patient has dentist HPI f/u mild anemia, labs HPI Details Patient returns to follow-up pre diabetes, weight loss and hypertension Blood pressure is well controlled. He is taking semaglutide for weight loss. His says that he has not been working on diet as much but there exercising. No new complaints. Patient feels well. 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 Mother Cancer Brother Cancer of prostate Social History Housing: House Alcohol intake: current Alcohol intake frequency: holidays/special occasions only Patient Tobacco Use Status: Never used Tobacco e-Cigarette/Vaping Use: Never Used Second Hand Smoke Exposure: No service: No Current occupational status: employed and retired Current occupational exposures/hazards: No Cognitive needs: No Hearing needs: No Vision needs: No Questionnaire Thrive Questionnaire Date Thrive assessed: 06/23/24 I am a: Patient What is your living situation today?: I have a steady place to live Within the past 12 months, did the food you bought not last and you didn't have the money to get more?: Never true Within the past 12 months, did you worry whether your food would run out before you got money to buy more?: Never true Do you have trouble paying for medicines?: No Do you have trouble getting transportation to medical appointments?: No Do you have trouble paying your heating and electricity bill?: No Do you have trouble taking care of your child, family member or friend?: No Do you have trouble with day-to-day activities such as bathing, preparing meals, shopping, managing finances, etc.?: No Are you currently unemployed and looking for a job?: No Are you interested in more education?: No Please select the resources that you would like help with: None Currently or been in a relationship where the following occur: No concerns reported THRIVE Score: 0 WIL-7 AMB Questionnaire WIL-7 Date WIL - 7 assessed: 04/19/23 Source: Developed by Drs. Micha Mendoza, Tanja Velasquez, Bubba Rdz and colleagues, with an educational lynne from [employer]. Review of Systems Const Denies chills, Denies fatigue, Denies fever(s), Denies headache(s) and Denies weakness ENT Denies dizziness and Denies headache(s) Card Denies chest pain, Denies lightheadedness, Denies dyspnea and Denies other (Palpitations) Resp Denies cough, Denies dyspnea, Denies wheezing and Denies other ( shortness of breath) Musc Denies numbness and Denies tingling Neuro Denies dizziness, Denies headache(s), Denies numbness, Denies tingling, Denies paresthesias and Denies weakness Psych Denies anxiety and Denies depression Endo Denies fatigue Aller/Immun Denies wheezing Physical exam (Primary Care) Tobacco/Smoking Status: Tobacco use Status Tobacco use date assessed 08/25/24 08/25/24 10:02 Patient Tobacco Use Status Never used Tobacco 08/25/24 10:02 e-Cigarette/Vaping Use Never Used 08/25/24 10:02 Thrive Assessment: Date of Thrive Assessment Date Thrive assessed 06/23/24 08/25/24 10:02 Currently or been in a relationship where the following occur: No concerns reported Const General: no acute distress and well developed Nutritional Appearance: well nourished Orientation/consciousness: patient oriented x3 HENMT Head: Yes normocephalic and Yes atraumatic Eyes General: appearance normal, both eyes and all related structures Pupils: Equal, round and reactive pupils present EOM: EOMs intact bilaterally Resp Effort & Inspection: normal respiratory effort Auscultation: clear to auscultation bilaterally Cardio Rate: regular rate Rhythm: regular rhythm Heart sounds: S1 normal heart sound present, S2 normal heart sound present, no gallops, no murmurs and no rubs Neuro General: patient oriented x3 and gait normal Cranial nerves: Yes Equal, round and reactive pupils present Psych Affect: normal affect Coding Level of Care Code Est Pt Level 4 (26205) Diagnoses Pre-diabetes R73.03 BMI 45.0-49.9, adult Z68.42 Hyperlipidemia E78.5 Essential hypertension I10 Assessment & Plan Assessment & Plan (1) Pre-diabetes: Code(s): R73.03 - Prediabetes Category: Medical Plan: A1c remains at 5.7%. Stable. Continue working at a diet low in sugars and starches Continue working at weight loss He is on semaglutide for weight loss (2) BMI 45.0-49.9, adult: Code(s): Z68.42 - Body mass index [BMI] 45.0-49.9, adult Category: Medical Plan: As above Patient continues to lose weight on semaglutide though this has slowed some Encouraged weight loss through diet and exercise Continue semaglutide (3) Hyperlipidemia: Code(s): E78.5 - Hyperlipidemia, unspecified Category: Medical Plan: Lipids are well controlled on atorvastatin. Continue current medication (4) Essential hypertension: Code(s): I10 - Essential (primary) hypertension Category: Medical Plan: Blood pressure is controlled. Goal is less than 140/90 Continue medication Plan Of note, his H&H were slightly low at last visit. Back within normal range. This was discussed patient.
[2024-12-05 09:34] VITALS: BP 122/70; PULSE 73; RESP 16; TEMP 36.6; O2SAT 95; BMI 44.4
--- OUTSIDE RECORDS SUMMARY | 2024-12-05 10:27 | XMS_ITS | Patient Health Record ---
Author Organization [facility] Address [address] [place] [address] Care Team Providers Care Preload Supervisor Name Role Phone Donnie Butterfield Primary Care Provider UnavailMicha Salazar [phone] Allergies No Known Allergies Results Component Value Reference Range Notes Pathology (Not yet reviewed by provider) Interpretation: Performing Lab:[facility], [address] [place] [phone] Notes/Report: Reason For Referral No Information Medications [...] Problem Status W/U Status Risk Notes Problem 689438839 Encounter for screening for malignant neoplasm of colon (Z12.11) Active confirmed Problem 279880967 History of adenomatous polyp of colon (Z86.010) Active confirmed Problem Pre-procedure evaluation check (783830549) Encounter for other preprocedural examination (Z01.818) Active confirmed Problem 61925380 Hypertension, unspecified type (I10) Active confirmed Encounters Encounter Location Date Provider [place] [facility] [address] [place] [id number] 04/18/2024 Micha Roberts Colon cancer nilese johana [...] Insured Coverage Start Date Coverage End Date [facility] Insurance ([employer]) [address] [place] [address] [id number] BRANDI JACOB Self - patient is the insured Medical (General) History Medical History History ICD Code Hypertension Denies [place],DM,CVA,renal disease On doxycycline for gingivitis December Asthma Colonoscopy 03/2013-small tubular adenoma removed Obesity--on Wegovy-started 07/2023--has l ost 10 pounds as of the 11/2023 OV Negative screening colonoscopy 08/2018 Surgical History Surgery Date(Month/Year) [place] [facility]
--- OUTSIDE RECORDS SUMMARY | 2024-12-05 10:28 | XMS_ITS | Clinical Summary ---
Author Organization [facility] Address [address] [id number] Phone Care Team Providers Care Jet Operator Name Role Phone Unknown, Unknown MD Primary [...] topic Medical Devices Not on file Insurance [facility] Care Teams Jet Operator Relationship Specialty Start Date End Date Unknown, Unknown, PCP - General 06/22/17 Additional Source Comments The information contained in this document represents components of the legal health record. It is not the complete legal health record.[facility]
== END 2024-12-05 09:56 | disposition home or self-care (01) ==
LOC: HO.HMCFM 09:24
PROVIDERS: PCP Family Medicine; Visit Provider Family Medicine
DX: R73.03 Prediabetes (principal); Z68.42 Body mass index [BMI] 45.0-49.9, adult; E78.5 Hyperlipidemia, unspecified; I10 Essential (primary) hypertension

== ENCOUNTER 2025-02-05 08:52 | Outpatient (AMB) | payer OTHER, SELFPAY ==
--- OUTSIDE RECORDS SUMMARY | 2024-04-18 02:30 | XMS_ITS ---
Author Organization [facility] Address [address] [place] [address] Care Team Providers Care Licensed Psychologist Name Role Phone Donnie Butterfield Primary Care Provider UnavailMicha Salazar [phone] REASON FOR VISIT colon screening Encounters Encounter Location Date Provider Diagnosis [facility] [place] [address] [place] [phone] 04/18/2024 Micha oRberts Colon cancer scree johana Z12.11 ; Personal [...] Notes * BRANDI JACOBDOB:1960 (64 yo M)Acc No.[id number]:04/18/2024 COLON WITH MAC Patient: BRANDI BARILLAS Provider: Mac Roberts MD :1960 A ge:64 Y S ex:Male Date:04/18/2024 Address:[address] [place] [address] Pcp:Donnie Butterfield Subjective: * Chief Complaints: * 1 . Colon screening. * Medical History: Objective: * Vitals: Assessment: * Assessment: 1. C olon cancer screening - Z12.11 (Primary) 2 . P ersonal history of adenomatous and serrated colon polyps - Z86.0101 3 . A denoma of transverse colon - D12.3 4 . D iverticulosis of colon - K57.30 Plan: * Treatment: * Procedure Codes: 4 5385 LESION REMOVAL COLONOSCOPY, Modifiers: PT * * The named appointment provid er may or may not be the originator of this progress note, and it is not deemed complete until electronically signed by the appointment provider. Sign off status: Pending * Provider: Mac Roberts MD Date: 0 04/18/2024 Generated for Braydon olsen/Fuentes/Shreeitting on: 04/07/2024 09:28 AM EST
--- NOTE | 2025-02-05 08:53 | A.OFFVIS_ITS ---
Intake Visit Reasons: 1y/UA Intake Note: Patient is present for 1 yr Follow Up Urology Med: None Antibiotic Allergy: None Blood Thinner: None PVR:0 mls Parish Worker Required: No Accompanied by: Spouse Allergies Seasonal Allergies Allergy (Verified 02/05/25 08:54) sneezing, runny nose HPI Comments Details: Mr Bravo is a very pleasant male. They are a patient of Dr. Hale. They are seen in the office today for the following urologic conditions. 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 Prior treatment includes fluid restriction, alpha lashay, 5-AR. Prostate Symptom Score 1/9 , Moderate (9-19), Bother 3 PSA - 01/13 0.26, 02/14 0.9, 02/15 1.2, 07/17 1.1 Symptoms include 04/13 , incomplete emptying, weak stream, nocturia (>2), and are progressing 06/11 , incomplete emptying, weak stream, , and are improving. Results from testing include cystoscopy no abnormality seen 04/13 cytology - chronic inflammation Testing at next visit will include bladder scan. 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 Mother Cancer Brother Cancer of prostate Social History (Updated 12/05/24 @ 09:34 by Kenna Connolly MA) Housing: House Alcohol intake: current Alcohol intake frequency: holidays/special occasions only Patient Tobacco Use Status: Never used Tobacco e-Cigarette/Vaping Use: Never Used Second Hand Smoke Exposure: No service: No Current occupational status: employed and retired Current occupational exposures/hazards: No Cognitive needs: No Hearing needs: No Vision needs: No Review of Systems Const Denies chills and Denies fever(s) Card Reports no additional complaints and Denies syncope Resp Denies cough GI Denies abdominal pain and Denies heartburn Reports as per HPI and Denies change in libido Neuro Denies syncope Psych Denies change in libido Endo Denies change in libido Physical Exam Const General: cooperative, healthy appearing, comfortable and no acute distress Orientation/consciousness: patient oriented x3 HEENT Face and sinus: Yes normal facial exam Mouth: moist mucous membranes Neck Neck: Yes normal visual inspection, Yes full ROM and Yes trachea midline Chest Chest palpation & inspection: normal inspection of the chest Resp Effort & Inspection: normal respiratory effort, able to speak in complete sentences and no respiratory distress GI Inspection: Yes normal to inspection Back/Spine/Pelvis Cervical Spine: normal cervical lordosis Thoracic/Lumbar Spine: thoracic and lumbar spine normal to inspection Skin General skin exam: no rashes or lesions noted Neuro General: patient oriented x3, gait normal, tone normal and moves all extremities Extrem General: Yes normal to inspection and Yes capillary refill normal Office Procedures Post Void Residual Post Residual Void Post Void Residual (PVR): 0 [id number] Void Residual by ultrasound Results AMB Urinalysis, Automated UA Leukoctes 0 Jakub/uL Last Edit by Kimberly Simmons [facility] on 02/05/25 09:11 UA Nitrite Negative Last Edit by Kimberly Simmons [facility] on 02/05/25 09:11 UA Urobilinogen 0.2 mg/dL Last Edit by Kimberly Simmons [facility] on 02/05/25 09:11 UA Protein 0 mg/dL Last Edit by Kimberly Simmons [facility] on 02/05/25 09:11 UA pH 6.0 Last Edit by Kimberly Simmons [facility] on 02/05/25 09:11 UA Blood 0 Wilber/uL Last Edit by Kimberly Simmons [facility] on 02/05/25 09:11 UA Specific [place] 1.015 Last Edit by Kimberly Simmons [facility] on 02/05/25 09:1 1 UA Ketone Negative Last Edit by Kimberly Simmons [facility] on 02/05/25 09:11 UA Bilirubin 0 mg/dL Last Edit by Kimberly Simomns [facility] on 02/05/25 09:11 UA Glucose 0 mg/dL Last Edit by MIA Ko on 02/05/25 09:11 Results Reviewed Results Reviewed: Laboratory Last Values Urine pH (Auto) 6.0 02/05/25 09:10 Specific [place] (Auto) 1.015 02/05/25 09:10 Urine Protein (Auto) 0 mg/dL 02/05/25 09:10 Glucose (UA)(Auto) 0 mg/dL 02/05/25 09:10 Urine Ketones (Auto) Negative 02/05/25 09:10 Urine Blood (Auto) 0 Wilber/uL 02/05/25 09:10 Urine Nitrite (Auto) Negative 02/05/25 09:10 Urine Bilirubin (Auto) 0 mg/dL 02/05/25 09:10 Urine Urobilinogen (Auto) 0.2 mg/dL 02/05/25 09:10 Leukocyte Esterase (Auto) 0 Jakub/uL 02/05/25 09:10 Assessment & Plan Assessment & Plan (1) Microscopic hematuria: Code(s): R31.29 - Other microscopic hematuria Category: Medical Plan Twelve month follow-up PSA Orders: Orders Prostate Specific Antigen 12 Months R31.29 - Other microscopic hematuria Patient Instructions: This note is constructed using voice recognition software. While every effort has been made to ensure accuracy receiving specialist errors may have been included. Imaging studies, laboratory and physical exam results were discussed and reviewed in detail. No major barriers to patient understanding were identified. An opportunity to ask questions regarding the treatment plan was provided. All questions were answered. The patient expressed understanding and agreement with the above treatment plan. The patient is aware they should contact our office by phone for worsening of their current condition or the appearance of new urologic symptoms. Compliance is encouraged with any medications and followup testing that is ordered. It is a privilege to participate in the urologic care of your patient. If you have any questions or concerns regarding treatment for the above conditions, or other urologic issues, please do not hesitate to contact me. The office telephone contact is [phone]. Sincerely, Dr Jeison Hazel MD, [facility] - Urology Compassionate Specialist Care for the Genitourinary System Coding Level of Care Code Est Pt Level 4 (03793) Complex EM visit Add On G2211 Diagnoses Microscopic hematuria R31.29 CPT Codes Post Residual Void - PVR CPT Code: 46546-Spxq Void Residual by ultrasound ([id number])
--- OUTSIDE RECORDS SUMMARY | 2025-02-05 09:28 | XMS_ITS | Clinical Summary ---
Author Organization [facility] Address [address] [phone] Phone Care Team Providers Care County Bailiff Name Role Phone Unknown, Unknown MD Primary [...] on patient's age to complete this topic IPV VACCINES Aged Out No longer eligi ble based on patient's age to complete this topic MENINGOCOCCAL VACCINES (ACWY) Aged Out No longer eligible based on patient's age to complete this topic MENINGOCOCCAL VACCINES (B) Aged Out N o longer eligible based on patient's age to complete this topic Medical Devices Not on file Insurance [facility] Care Teams County Bailiff Relationship Specialty Start Date End Date Unknown, Unknown, PCP - General 06/22/17 Additional Source Comments The information contained in this document represents components of the legal health record. It is not the complete legal health record.[facility]
--- OUTSIDE RECORDS SUMMARY | 2025-02-05 09:28 | XMS_ITS | Patient Health Record ---
Author Organization [facility] Address [address] [place] [address] Care Team Providers Care Kalsominer Name Role Phone Donnie Butterfield Primary Care Provider UnavailMicha Salazar [phone] Allergies No Known Allergies Results Component Value Reference Range Notes Pathology (Not yet reviewed by provider) Interpretation: Performing Lab:[facility], [address] [place] [phone] Notes/Report: Reason For Referral No Information Medications Medication SIG (Take, Route, Frequency, Duration) Notes Start Date End Date Status Albuterol Sulfate HFA 108 (90 Base) MCG/ACT PLEASE SEE ATTACHED FOR DETAILED DIRECTIONS Inhalation; Duration: 90 Active Doxycycline Hyclate 20mg 1 capsule Orally prn Dec through July for gingivitis Active Wegovy 1 MG/0.5ML 0.5 mL Subcutaneous; Duration: 30 day(s) For weight loss Active Pulmicort 0.5 MG/2ML 1 mL Inhalation Twice a day Active Lisinopril 20 MG 1 tablet Orally Once a day Active Cialis 20 MG 1 tablet Orally prn Active Chlorthalidone 50 MG TAKE 1 TABLET BY MOUTH EVERY MORNING Oral; Duration: 90 Active Montelukast Sodium 10 MG Oral; Duration: 90 Active amLODIPine Besylate 5 MG TAKE 1 TABLET BY MOUTH EVERY DAY Oral; Duration: 90 Active Immunizations Vaccine Route Administration Date Status Comme nts Influenza Unknown 01/01/2018 Administered Problems Problem Type SNOMED Code ICD Code Onset Dates Problem Status W/U Status Risk Notes Problem Screening for malignant neoplasm of colon (610889499) Encounter for screening for malignant neoplasm of colon (Z12.11) Active confirmed Problem History of adenomatous polyp of colon (855976739) History of adenomatous polyp of colon (Z86.010) Active confirmed Problem Pre-procedure evaluation check (511909747) Encounter for other preprocedural examination (Z01.818) Active confirmed Problem Essential hypertension (22372778) Hypertension, unspecified type (I10) Active confirmed Encounters Encounter Location Date Provider [place] [facility] [place] [address] [place] [id number] 04/18/2024 Micha Roberts Colon cancer scree johana [...] Insured Coverage Start Date Coverage End Date [facility] [address] [place] [id number] [phone] [id number] BRANDI JACOB Self - patient is the insured Medical (General) History Medical History History ICD Code Hypertension Denies [place],DM,CVA,renal disease On doxycycline for gingivitis December Asthma Colonoscopy 03/2013-small tubular adenoma removed Obesity--on Wegovy-started 07/2023--has l ost 10 pounds as of the 11/2023 OV Negative screening colonoscopy 08/2018 Surgical History Surgery Date(Month/Year) [place]ole[place] [facility] [place]
== END 2025-02-05 09:42 | disposition home or self-care (01) ==
LOC: HO.HUSH 08:52
PROVIDERS: PCP Family Medicine; Visit Provider Urology
DX: R31.29 Other microscopic hematuria (principal)
CPT/HCPCS: 99214

== ENCOUNTER → 2025-02-05 08:52 | Outpatient (BNVA) | payer OTHER, SELFPAY | PROVIDERS: PCP Family Medicine; Visit Provider Urology | DX: R31.29 Other microscopic hematuria (principal) | CPT/HCPCS: 51798 ==

== ENCOUNTER 2025-03-10 09:24 | Outpatient (AMB) | payer OTHER, SELFPAY ==
--- OUTSIDE RECORDS SUMMARY | 2024-04-18 02:30 | XMS_ITS ---
Author Organization [facility] Address [address] [place] [phone] Care Team Providers Care Dedenter Name Role Phone Donnie Butterfield Primary Care Provider UnavailMicha Salazar [phone] REASON FOR VISIT colon screening Encounters Encounter Location Date Provider Diagnosis [facility] Outpatient [address] [place] [phone] 04/18/2024 Micha Roberts Colon cancer scree johana Z12.11 ; Personal history of adenomatous and serrated colon polyps Z86.0101 ; 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 and Diverticulosis of colon K57.30 Assessments Encounter Date Diagnosis (ICD Code) Assessment Notes Treatment Notes Treatment Clinical Notes Section Notes 04/18/2024 Colon cancer screening (ICD-10 - Z12.11) 04/18/2024 Personal history of adenomatous and serrated colon polyps (ICD-10 - Z86.0101) 04/18/2024 Adenoma of transverse colon (ICD-10 - D12.3) 04/18/2024 Diverticulosis of colon (ICD-10 - K57.30) Plan Of Treatment No Information Progress Notes * BRANDI JACOBDOB:1960 (64 yo M)Acc No.[id number]:04/18/2024 COLON WITH MAC Patient: BRANID BARILLAS Provider: Mac Roberts MD :1960 A ge:64 Y S ex:Male Date:04/18/2024 Address:[address] [place] [address] Pcp:Donnie Butterfield Subjective: * Chief Complaints: * C olon screening Assessment: * Assessment: 1. C olon cancer screening - Z12.11 (Primary) 2 . P ersonal history of adenomatous and serrated colon polyps - Z86.0101 3 . A denoma of transverse colon - D12.3 4 . D iverticulosis of colon - K57.30 Plan: * Procedure Codes: 4 5385 LESION REMOVAL COLONOSCOPY, Modifiers: PT Billing Information: * Procedure Codes: 43846 LESION REMOVAL COLONOSCOPY. Modifiers: PT * The named appointment provid er may or may not be the originator of this progress note, and it is not deemed complete until electronically signed by the appointment provider. Sign off status: Pending * Provider: Mac Roberts MD Date: 0 04/18/2024 Generated for Braydon olsen/Fuentes/Shreeitting on: 1 05/11/2024 10:53 AM EST
--- NOTE | 2025-03-10 09:57 | MHC.PC.OV ---
Vital Signs 03/10/25 10:03 Height 6 ft 2 in Weight 327 lb BMI 42.0 BP 118/68 Blood Pressure Location Rt brachial Position Sitting Respiration 16 Pulse 74 Pulse Source Pulse Oximeter Temp 98 F Temp Source Temporal Artery Scan Pulse Oximetry (%) 94 Oxygen Delivery Method Room Air Intake Visit Reasons: Follow-up pre diabetes, hypertension and weight Intake Note: Bright presents in the office today for a follow up to pre-diabetes, hypertension and weight. Medical Record Administrator Required: No Allergies Seasonal Allergies Allergy (Verified 03/10/25 10:01) sneezing, runny nose Medication List - Last Reconciled 03/10/25 by Donnie Butterfield MD albuterol sulfate 90 mcg/actuation 2 puffs PO Q4H PRN 90 days amlodipine 5 mg PO DAILY 90 days atorvastatin 20 mg PO DAILY 90 days budesonide 180 mcg/actuation (Pulmicort Flexhaler) 1 inh inhalation BID 3 months chlorthalidone 50 mg PO QAM doxycycline hyclate 20 mg PO BID lisinopril 20 mg PO DAILY 90 days montelukast 10 mg PO DAILY 90 days semaglutide (weight loss) 2.4 mg (0.75 mL) subcut QWEEK 28 days Tobacco use date assessed: 03/10/25 Dental Screening Dental Screen Date: 03/10/25 Did you have a dental visit in the last 12 months?: Yes Did you have a dental problem in the last 6 months where you did not have access to dental care?: No Was dental information given to patient?: Patient has dentist HPI Follow-up pre diabetes, hypertension and weight HPI Details 64 y/o male presents to f/u prediabetes, HTN, weight. Blood pressure today 118/68, 74p. He is on lisinopril 20mg, amlodipine 5mg daily. Has lost some weight since last office visit - 346 lbs in November to 327 lbs today. Denies any issues with his semaglutide. A1c today 5.6%. Complaints of an ingrown hair, R 5th toe. 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 Mother Cancer Brother Cancer of prostate Social History (Updated 03/10/25 @ 10:02 by Kenna Connolly CMA) Housing: House Alcohol intake: current Alcohol intake frequency: holidays/special occasions only Patient Tobacco Use Status: Never used Tobacco e-Cigarette/Vaping Use: Never Used Second Hand Smoke Exposure: No Use of substances other than those prescribed or required for medical reasons: No service: No Current occupational status: employed and retired Current occupational exposures/hazards: No Cognitive needs: No Hearing needs: No Vision needs: No Questionnaire Thrive Questionnaire Date Thrive assessed: 06/23/24 I am a: Patient What is your living situation today?: I have a steady place to live Within the past 12 months, did the food you bought not last and you didn't have the money to get more?: Never true Within the past 12 months, did you worry whether your food would run out before you got money to buy more?: Never true Do you have trouble paying for medicines?: No Do you have trouble getting transportation to medical appointments?: No Do you have trouble paying your heating and electricity bill?: No Do you have trouble taking care of your child, family member or friend?: No Do you have trouble with day-to-day activities such as bathing, preparing meals, shopping, managing finances, etc.?: No Are you currently unemployed and looking for a job?: No Are you interested in more education?: No Please select the resources that you would like help with: None Currently or been in a relationship where the following occur: No concerns reported THRIVE Score: 0 WIL-7 AMB Questionnaire WIL-7 Date WIL - 7 assessed: 04/19/23 Source: Developed by Drs. Micha Mendoza, Tanja Velasquez, Bubba Rdz and colleagues, with an educational lynne from [employer]. Review of Systems Const Denies chills, Denies fatigue, Denies fever(s), Denies headache(s) and Denies weakness ENT Denies dizziness and Denies headache(s) Card Denies dyspnea Resp Denies cough, Denies dyspnea, Denies wheezing and Denies other (shortness of breath) Musc Denies numbness and Denies tingling Neuro Denies dizziness, Denies headache(s), Denies numbness, Denies tingling and Denies weakness Psych Denies anxiety and Denies depression Endo Denies fatigue Aller/Immun Denies wheezing Physical exam (Primary Care) Vital Signs: Last Vital Signs Temp 98 F 03/10/25 10:03 Pulse 74 03/10/25 10:03 Resp 16 03/10/25 10:03 BP 118/68 03/10/25 10:03 Pulse Ox 94 03/10/25 10:03 Oxygen Delivery Method Room Air 03/10/25 10:03 BMI result Body Mass Index 42.0 Tobacco/Smoking Status: Tobacco use Status Tobacco use date assessed 03/10/25 03/10/25 10:06 Patient Tobacco Use Status Never used Tobacco 03/10/25 10:02 e-Cigarette/Vaping Use Never Used 03/10/25 10:02 Thrive Assessment: Date of Thrive Assessment Date Thrive assessed 06/23/24 03/10/25 09:58 Currently or been in a relationship where the following occur: No concerns reported Const General: well developed; No acute distress Nutritional Appearance: well nourished and obese morbidly obese Orientation/consciousness: patient oriented x3 HENMT Head: Yes normocephalic and Yes atraumatic Eyes General: appearance normal, both eyes and all related structures Pupils: Equal, round and reactive pupils present EOM: EOMs intact bilaterally Resp Effort & Inspection: normal respiratory effort Auscultation: clear to auscultation bilaterally Cardio Rate: regular rate Rhythm: regular rhythm Heart sounds: S1 normal heart sound present, S2 normal heart sound present, no gallops, no murmurs and no rubs Neuro General: patient oriented x3 and gait normal Cranial nerves: Yes Equal, round and reactive pupils present Psych Affect: normal affect Coding Level of Care Code Est Pt Level 4 (82739) Diagnoses Essential hypertension I10 Pre-diabetes R73.03 Morbid obesity E66.01 Ingrown hair L73.1 Assessment & Plan Assessment & Plan (1) Essential hypertension: Code(s): I10 - Essential (primary) hypertension Category: Medical Plan: Blood pressure is well controlled. Goal is less than 140/90 Continue current medication (2) Pre-diabetes: Code(s): R73.03 - Prediabetes Category: Medical Plan: A1c 5.6%. Improved Continue current diet and weight loss (3) Morbid obesity: Code(s): E66.01 - Morbid (severe) obesity due to excess calories Category: Medical Plan: Patient is on semaglutide for weight loss Has lost another 19 lb since his last visit Continue current medication. Continue exercise and diet (4) Ingrown hair: Code(s): L73.1 - Pseudofolliculitis barbae Category: Medical Plan: Ingrown hair at right 5th toe with small abscess No surrounding infection Use warm soaks with Epsom salt and can use a drawing salve as he has been Encourage drainage Wear socks Watch for expanding infection Call or return to office if worsening or not improving.
[2025-03-10 10:03] VITALS: BP 118/68; PULSE 74; RESP 16; TEMP 36.6; O2SAT 94; BMI 42.0
--- OUTSIDE RECORDS SUMMARY | 2025-03-10 10:53 | XMS_ITS | Clinical Summary ---
Author Organization [facility] Address [address] [phone] Phone Care Team Providers Care Tumbler Machine Operator Name Role Phone Unknown, Unknown MD [...] topic Medical Devices Not on file Insurance [facility] Care Teams Tumbler Machine Operator Relationship Specialty Start Date End Date Unknown, Unknown, PCP - General 06/22/17 Additional Source Comments The information contained in this document represents components of the legal health record. It is not the complete legal health record.[facility]
--- OUTSIDE RECORDS SUMMARY | 2025-03-10 10:53 | XMS_ITS | Patient Health Record ---
Author Organization [facility] Address [address] [place] [address] Care Team Providers Care Newcomer Hostess Name Role Phone Donnie Butterfield Primary Care Provider Micha Branch [phone] Allergies No Known Allergies Results Component Value Reference Range Notes Pathology (Not yet reviewed by provider) Interpretation: Performing Lab:[facility], [address] [place] [id number] Notes/Report: Reason For Referral No Information Medications Medication SIG (Take, Route, Frequency, Duration) Notes Start Date End Date Status Albuterol Sulfate HFA 108 (90 Base) MCG/ACT Aerosol Solution PLEASE SEE ATTACHED FOR DETAILED DIRECTIONS Inhalation; Duration: 90 Active Doxycycline Hyclate 20mg 1 capsule Orally prn Dec through July for gingivitis Active Wegovy 1 MG/0.5ML Solution Auto-injector 0.5 mL Subcutaneous; Duration: 30 day(s) For weight loss Active Pulmicort 0.5 MG/2ML Suspension 1 mL Inhalation Twice a day Active Lisinopril 20 MG Tablet 1 tablet Orally Once a day Active Cialis 20 MG Tablet 1 tablet Orally prn Active Chlorthalidone 50 MG Tablet TAKE 1 TABLET BY MOUTH EVERY MORNING Oral; Duration: 90 Active Montelukast Sodium 10 MG Tablet Oral; Duration: 90 Active amLODIPine Besylate 5 MG Tablet TAKE 1 TABLET BY MOUTH EVERY DAY Oral; Duration: 90 Active Immunizations Vaccine Route Administration Date Status Comme nts Influenza Unknown 01/01/2018 Administered Social History Social History Additional Details Category Social Info Options Details Miscellaneous: Marital status: 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 Section Notes: Nonsmoker; occasional alcoho l Nonsmoker; occasional alcoho l Nonsmoker; occasional alcoho l Problems Problem Type SNOMED Code ICD Code Onset Dates Problem Status W/U Status Risk Notes Problem Screening for malignant neoplasm of colon (296071405) Encounter for screening for malignant neoplasm of colon (Z12.11) Active confirmed Problem History of adenomatous polyp of colon (584256093) History of adenomatous polyp of colon (Z86.010) Active confirmed Problem Pre-procedure evaluation check (996910259) Encounter for other preprocedural examination (Z01.818) Active confirmed Problem Essential hypertension (18093416) Hypertension, unspecified type (I10) Active confirmed Encounters Encounter Location Date Provider Diagnosis [facility] [address] [place] [phone] 04/18/2024 Micha Roberts Colon cancer scree johana Z12.11 ; Personal history of adenomatous and serrated colon polyps Z86.0101 ; 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 and Diverticulosis of colon K57.30 Assessments Encounter Date Diagnosis (ICD Code) Assessment Notes Treatment Notes Treatment Clinical Notes Section Notes 04/18/2024 Personal history of adenomatous and serrated colon polyps (ICD-10 - Z86.0101) 04/18/2024 Colon cancer screening (ICD-10 - Z12.11) 04/18/2024 Adenoma of transverse colon (ICD-10 - D12.3) 04/18/2024 Diverticulosis of colon (ICD-10 - K57.30) Plan Of Treatment Pending Test Test Name Order Date Pathology 04/18/2024 Future Test Test Name Order Date COLONOSCOPY 01/08/2013 COLONOSCOPY 07/03/2018 COLONOSCOPY 11/30/2023 Insurance Providers Payer Name Payer Address Payer Phone Subscriber Number Group Number Insured Name Patient Relationship to Insured Coverage Start Date Coverage End Date [facility] Insurance ([employer]) [id number] LUIS MIGUEL Kruse [id number] [phone] [id number] BRANDI JACOB Self - patient is the insured Medical (General) History Medical History History ICD Code Hypertension Denies MA,DM,CVA,renal disease On doxycycline for gingivitis December Asthma Colonoscopy 03/2013-small tubular adenoma removed Obesity--on Wegovy-started 07/2023--has l ost 10 pounds as of the 11/2023 OV Negative screening colonoscopy 08/2018 Surgical History Surgery Date(Month/Year) Cholecystectomy--[place] [facility] [place]
== END 2025-03-10 10:33 | disposition home or self-care (01) ==
LOC: HO.HMCFM 09:24
PROVIDERS: PCP Family Medicine; Visit Provider Family Medicine
DX: R73.03 Prediabetes (principal); E66.01 Morbid (severe) obesity due to excess calories; Z68.41 Body mass index [BMI] 40.0-44.9, adult; I10 Essential (primary) hypertension; L73.1 Pseudofolliculitis barbae

== ENCOUNTER → 2025-03-10 09:24 | Outpatient (BNVA) | payer OTHER, SELFPAY | PROVIDERS: PCP Family Medicine; Visit Provider Family Medicine | DX: R73.03 Prediabetes (principal); I10 Essential (primary) hypertension; E66.01 Morbid (severe) obesity due to excess calories; L73.1 Pseudofolliculitis barbae; Z68.41 Body mass index [BMI] 40.0-44.9, adult | CPT/HCPCS: 83036 ==